=== PATIENT | female | born 1940 | race African-American/Black ===

== ENCOUNTER 2017-09-24 06:33 | Observation (INO) ==
[2017-09-24] MEDS ORDERED: Lidocaine -MPF 1% 2 ML VIAL ID ONE (06:56)
[2017-09-24] MEDS ORDERED: CeFAZolin Syr 2,000MG/20 ML 2,000 MG/20 ML SYRINGE IVPB ONE (06:56)
[2017-09-24] MEDS ORDERED: 0.9 % Sodium Chloride 500 ML IVC SCH ×2 (07:00→12:15)
[2017-09-24] MEDS ORDERED: Lidocaine 1% 20 ML MDV ONE (07:25)
[2017-09-24] MEDS ORDERED: Heparin 1,000 UNITS/500 mL 1,000 ML ONE (07:25)
[2017-09-24] MEDS ORDERED: *HR* Succinylcholine 200 MG/10 ML VIAL IVP ONE (07:35)
[2017-09-24] MEDS ORDERED: Dexamethasone 4 MG/ML VIAL ONE (07:35)
[2017-09-24] MEDS ORDERED: Ondansetron 4 MG/2 ML VIAL ONE (07:35)
[2017-09-24] MEDS ORDERED: *HR* FentaNYL (PF) 100 MCG/2 ML VIAL ONE ×2 (07:35→09:30)
[2017-09-24] MEDS ORDERED: Lidocaine -MPF 2% 2 ML VIAL ONE (07:35)
[2017-09-24] MEDS ORDERED: *HR* Propofol 200 MG/20 ML VIAL IVP ONE (07:35)
[2017-09-24] MEDS ORDERED: *HR* Etomidate 40 MG/20 ML VIAL IVP ONE (07:36)
--- NOTE | 2017-09-24 07:39 | Anesthesia Evaluation PreOp ---
Date of Encounter: 09/24/17 Time of Encounter: 07:37 - Past History Planned Operation: right upper extremity vasc access Cardiac History: [place], Angina (currently with chest pain, new EKG shows no changes. Some associated mild SOB. Patient reports pain has resolved after EKG done.), HTN, Hyperlipidemia, Cardiac Surgery (2000) Pulmonary History: Denies Any Significant HX EXTERMINATOR HELPER History: Denies Any Significant HX Other Medical History: Renal (ESRD), Diabetes Type II Anesthesia History: No Prior Anesthetic Complications, Past Anesthesia (GLADYS, CABG, left TKA, nargis, ear sx) : No Alcohol Use: none Drug use: none Medications and Allergies Amlodipine [Amlodipine Besylate] 5 mg PO DAILY 08/05/15 [History] Aspirin Enteric Coated [Aspirin EC] 81 mg PO DAILY 08/05/15 [History] Carvedilol [Coreg] 25 mg PO BID 08/05/15 [History] Furosemide [Lasix] 20 mg PO BID 08/05/15 [History] Hydralazine HCl 50 mg PO DAILY 08/05/15 [History] Hydrocodone/Acetaminophen [Xodol 10-300 Tablet] 5 each PO Q6H PRN 08/05/15 [ History] Isosorbide DInitrate [Isosorbide Dinitrate] 10 mg PO BID 08/05/15 [History] Paricalcitol [Zemplar] 1 mcg PO DAILY 08/05/15 [History] Warfarin [Coumadin] 2.5 mg PO 5XW 08/05/15 [History] Ferrous Sulfate 325 mg PO BIDWM #60 tablet 04/10/16 [Rx] [place]-3/Dha/Epa/Fish Oil [Fish Oil 1,000 mg Softgel] 1 each PO DAILY 09/06/17 [ History] Omeprazole [PriLOSEC] 20 mg PO DAILY 09/06/17 [History] Ubidecarenone [Coenzyme Q10] 100 mg PO DAILY 09/06/17 [History] Warfarin [Coumadin] 1.25 mg PO 2XW 09/06/17 [History] Donepezil HCl [Aricept] 10 mg PO DAILY 09/07/17 [History] Famotidine [Pepcid] 20 mg PO DAILY #10 tablet 09/07/17 [Rx] 3 Allergy/AdvReac Type Severity Reaction Status Date / Time No Known Allergies Allergy Verified 07/05/16 20:51 - Meds/Allergy Pre-op Review Medications Reviewed: Yes (took coumadin yesterday) Allergies Reviewed: Yes Beta Blockers on Current Med List: No Anesthesia Results - Labs Laboratory Tests 09/07/17 09/07/17 16:07 16:07 Hgb 10.0 L Hct 29.2 L Sodium 138 Potassium 3.7 BUN 55 H Creatinine 4.87 H - Imaging EKG: report reviewed Anesthesia Exam Selected Entries 09/24/17 07:00 Temperature 97.6 F Pulse Rate 66 Respiratory Rate 18 Blood Pressure 131/73 O2 Sat by Pulse Oximetry 98 Weight: 81kg NPO (# of Hours): 8 - HEENT Pupil (Motor): EOMI Mallampati: III Teeth: Normal Oral Opening: Greater than 3 - EXTERMINATOR HELPER LOC: Oriented EXTERMINATOR HELPER Motor: Normal RUE, Normal LUE, Normal RLE, Normal LLE, Normal Face EXTERMINATOR HELPER Sensory: Normal: RUE, LUE, RLE, LLE, Face - Cardiac Rhythm: Regular Murmur: None - Pulmonary Breath Sounds: bilateral Clear Respiratory Effort: Symmetrical Anesthesia Assess/Plan ASA Score: 4 Modified [place] Scale for Level of Consciousness: Cooperative, oriented, and tranquil Anesthetic Plan: General Autologous Blood: Yes Monitoring Plan: Standard Monitors, A-Line Recovery Plan: PACU (will place a-line, agrees to GA, will ask Dr Guerrero to keep overnight for observation of heart)
[2017-09-24] MEDS ORDERED: Heparin 1,000 UNITS/500 mL 0 ML ONE (07:44)
--- NOTE | 2017-09-24 07:50 | History & Physical Report ---
Date of Encounter: 09/24/17 Time of Encounter: 07:30 24 Hour HP Update - Instructions Instructions: If the History and Physical is less than 30 days old and was completed prior to A.M. admission and or procedure and has NOT been updated on calendar day of procedure please complete this update prior to performing procedure. - Update Patient reports changes in Medical Condition: Yes Changes in examination, assessment, or condition: Yes Changes in Medication: Yes Preop tests/diagnostics Reviewed: Yes Surgery Remains Indicated: Yes Consent for Planned Operative Procedure(s) Verified: Yes Review of Patient reveals the following changes:: change in beta lori dosage/Chest pain - Pre-Operative Checklist Preoperative Checklist Indicated: Yes Prophylactic Antibiotic Ordered: Yes Home Medications Include Beta Lori: Yes Beta Lori Taken Today (Day of Surgery): Yes Beta Lori Taken Yesterday (Day Prior to Surgery): Yes Is VTE Prophylaxis Indicated?: Yes
[2017-09-24] MEDS ORDERED: NiCARdipine 2.5 MG/10 ML Syringe IVPB ONE (08:07)
[2017-09-24] MEDS ORDERED: Nitroglycerin 25 MG/250 ML INFUS..BTL IVC ONE (08:07)
[2017-09-24] MEDS ORDERED: Lidocaine -MPF 4% 5 ML AMPUL ONE (09:29)
[2017-09-24] MEDS ORDERED: Neostigmine Methylsulfate 3 MG/3 ML SYRINGE ONE (11:59)
[2017-09-24] MEDS ORDERED: Ondansetron 4 MG/2 ML VIAL IVP ONE (12:05)
[2017-09-24] MEDS ORDERED: *HR* Morphine 2 MG/ML SYRINGE IVP PRN (12:05)
--- NOTE | 2017-09-24 12:16 | Operative Note ---
Date of procedure: 09/24/17 Pre-op diagnosis: ESRD Post-op diagnosis: same Procedure: creation of right forearm AV shunt(4-->7 mm PTFE Brachio-basilic AVS) Complications: none Anesthesia: JENNIEA Surgeon: Calixto Craft Estimated blood loss (cc): 150 Specimen: none Condition: stable Disposition: PACU Procedure in Detail: History Lakshmi Lemus is a 77-year-old -[place] and woman who has deteriorating renal function. The patient was in stage IV to stage V chronic kidney disease. She was asked to have a vascular access creation in anticipation of the need for dialysis in 2018. Procedure After informed consent was obtained the patient was taken to the operating room. General endotracheal anesthesia was established. An arterial line was placed. The right upper extremity was sterilely prepped and draped. A timeout protocol was observed. An ultrasound was then performed of the arm. Though a cephalic vein was identified by observation on the wrist area on ultrasound the vessel was very small and did not progress to a larger size more proximally and so therefore an AV fistula at the wrist was not anatomically feasible. An incision was then made in a transverse orientation at the antecubital area. Dissection was carried down to the antecubital and cephalic vein. The brachial artery was also identified more medially. The cephalic vein had inflammatory tissue surrounding it and was smaller in diameter than anticipated. The distance between the vessels with such that a AV fistula was not feasible and so therefore the patient would need an AV shunt. The arterial anastomosis was created first. This was performed in end to side fashion using a 4-7 mm tapered PTFE graft. After the arterial anastomosis was performed the graft was tunneled and then the cephalic vein was opened at the antecubital area. However upon opening the vein there was significant amount of intra-luminal scarring and weblike material. After exploration of this area it was found that this vein was inadequate for use as an outflow for an AV shunt. Therefore the operation would need to be revised. Attention was then directed more medially. The ultrasound was then reperformed to identify that the basilic vein was opened and appeared to be usable as a outflow venous conduit. Therefore the incision at the antecubital area was extended medially. The vein was identified. The vein was relatively small in diameter but was soft and appeared noninflamed. Therefore the graft was re- tunneled. He was taken out of the original tunnel with the orientation laterally towards the cephalic vein. It was re-tunneled so that the graft would now be oriented medially towards the basilic vein. This required re-tunneling more medially and then a revision of the artery side of the tunnel. After this was complete through a counterincision in the distal forearm and the venous anastomosis was constructed. This was constructed end-to-side to side using the larger diameter of the 4-7 mm PTFE graft with 6-0 Prolene. After appropriate backbleeding and flushing the graft was opened. Pulsatile flow was identified through the graft and into the basilic vein. Hemostasis was achieved. The wounds were irrigated with antibiotic containing solution. The wounds were then closed in layers using absorbable suture. Dry sterile dressings were applied. Doppler signals are identified at the radial and ulnar arteries following creation of the AV shunt. The patient was extubated in the operating room. She was hemodynamically stable. No hemodynamic drips were necessary. She was then taken to the recovery room in stable condition.
--- NOTE | 2017-09-24 13:33 | Anesthesia Evaluation Post Op ---
Date of Encounter: 09/24/17 Time of Encounter: 13:33 - Vital Signs Vital Signs: Last Vital Signs Temp 98.5 F 09/24/17 13:17 Pulse 64 09/24/17 13:17 Resp 17 09/24/17 13:17 BP 138/72 09/24/17 13:17 Pulse Ox 98 09/24/17 13:17 - Lungs Lungs: Clear Ascult./Percussion - Airway Airway: Non-obstructed - Cardiovascular Regular Rate - Mental Status Mental Status: Alert & Oriented, Answers Appropriately - Pain Pain Scale: 2 - Nausea Vomiting Nausea Vomiting: Not Present - Hydration Hydration: Ice chips - Discharge PostOp Status: Transfer Patient to floor
[2017-09-24] MEDS ORDERED: Ondansetron 4 MG/2 ML VIAL IVP PRN (13:47)
[2017-09-24] MEDS ORDERED: Naloxone 0.4 MG/ML INJ IVP PRN (13:47)
[2017-09-24] MEDS ORDERED: *HR* Warfarin 2.5 MG TABLET PO SCH ×2 (13:47→18:00)
--- NOTE | 2017-09-24 16:12 | Event Note ---
Date of Encounter: 09/24/17 Time of Encounter: 16:10 Mrs. Lemus is postop day 0 from creation of a right forearm AV shunt. The patient is resting comfortably on 2 N. Her arterial line is in place and functioning well. Her vital signs have been stable since surgery. She denies chest pain or shortness of breath. She is overall relaxed and in no distress. Her lungs are clear to auscultation. Cardiac exam reveals a regular rate and rhythm. I detect no rub or murmur. Her right upper extremity is without edema. Her right hand is warm. She has a palpable radial pulse. Her surgical dressings are dry and intact. Overall the patient is doing well. I anticipate she will be ready for discharge in a.m.
[2017-09-24] MEDS: Cholecalciferol (D-3) 1,000 UNIT TABLET PO SCH (17:01)
--- NOTE | 2017-09-24 18:34 | Electrocardiograph Report ---
[address] [place] [address] Test Date: 2017-09-24 Pat Name: Lakshmi Lemus Department: 101 Room: Gender: F Mfts: SAFIA : 1940 Requested By: Nathan Stevenson Order Number: [id number] Reading MD: Wilfredo Bergman DO Measurements Intervals [place] Rate: 59 P: 14 WA: 191 QRS: 4 QRSD: 97 T: 38 QT: 411 QTc: 411 Interpretive Statements SINUS BRADYCARDIA Electronically Signed On 09-24-2017 18:33:05 EST by Wilfredo Bergman DO
[2017-09-24] MEDS: Furosemide 40 MG TABLET PO SCH (21:01)
[2017-09-24] MEDS: hydrALAZINE 25 MG TABLET PO SCH (21:01)
[2017-09-24] MEDS: *HR* HYDROcodone/Acet 5/325 mg TABLET PO PRN (21:49)
[2017-09-25] MEDS: hydrALAZINE 25 MG TABLET PO SCH (08:10)
[2017-09-25] MEDS: Cholecalciferol (D-3) 1,000 UNIT TABLET PO SCH (08:10)
[2017-09-25] MEDS: Furosemide 40 MG TABLET PO SCH (08:11)
--- NOTE | 2017-09-25 08:16 | Discharge Summary ---
Date of Encounter: 09/25/17 Time of Encounter: 08:14 - Discharge Diagnosis (1) CAD (coronary artery disease) Priority: Secondary Status: Chronic Comments: Patient has coronary disease under medical treatment Qualifiers: Coronary Disease-Associated Artery/Lesion type: [place] artery [place] vs. transplanted heart: [place] heart Associated angina: with stable angina Qualified Code(s): I25.118 - Atherosclerotic heart disease of [place] coronary artery with other forms of angina pectoris (2) CKD (chronic kidney disease) stage 4, GFR 15-29 ml/min Priority: Primary Status: Acute Comments: Patient has worsening renal function (3) Dementia arising in the senium and presenium Priority: Secondary Status: Chronic - Discharge Medications Home Medications: Amlodipine [Amlodipine Besylate] 10 mg PO DAILY 08/05/15 [History] Aspirin Enteric Coated [Aspirin EC] 81 mg PO DAILY 08/05/15 [History] Carvedilol [Coreg] 12.5 mg PO BID 08/05/15 [History] Furosemide [Lasix] 20 mg PO BID 08/05/15 [History] Hydralazine HCl 50 mg PO BID 08/05/15 [History] Isosorbide DInitrate [Isosorbide Dinitrate] 10 mg PO BID 08/05/15 [History] Paricalcitol [Zemplar] 1 mcg PO DAILY 08/05/15 [History] Warfarin [Coumadin] 2.5 mg PO AD 08/05/15 [History] Omeprazole [PriLOSEC] 40 mg PO DAILY 09/06/17 [History] Ubidecarenone [Coenzyme Q10] 100 mg PO DAILY 09/06/17 [History] Donepezil HCl [Aricept] 10 mg PO HS 09/07/17 [History] Ergocalciferol (VITAMIN D2) [Drisdol (50,000 Unit)] 50,000 unit PO QWEEK [History] HYDROcodone/Acet 5/325 mg [[place] 5-325 mg] 1 tab PO Q8H PRN 09/24/17 [History] [place]-3/Dha/Epa/Fish Oil [Fish Oil 1,000 mg Softgel] 1,000 mg PO DAILY 09/24/17 [History] Allergies/Adverse Reactions: 3 Allergy/AdvReac Type Severity Reaction Status Date / Time No Known Allergies Allergy Verified 04/08/16 20:51 Procedures/tests Complete & Pending: Procedures Performed prior 72 hours Category Date Time Status EKG [ECG 12 lead ECG] [ECG] Stat Y 09/24/17 07:16 Completed Primary care physician: Morris Cabrera DO Consults: None Procedure(s) Performed: Right forearm AV shunt Discharging clinician: Calixto Craft Anticipated date of discharge: 09/25/17 - Patient Status Disposition: Home, Self-Care Condition: Fair Functional capacity at discharge: uses cane/walker Overall status at discharge: patient is progressing back to baseline - Discharge Instructions Follow Up With: Morris Cabrera DO [Primary Care Provider] - 09/29/17 9:30 am Calixto Craft MD [Partnered Physician] - 10/14/17 9:30 am Additional Instructions: Remove right upper extremity surgical dressings in 24 hours Elevate right upper extremity on one pillow No IVs, phlebotomy, or blood pressure measurements in the right upper extremity No lifting greater than 10 pounds with right upper extremity Follow-up with Dr. Craft in the outpatient clinic in 3 weeks. - Diet and Activity Activity: increase activity as tolerated Diet: advance to your usual diet - Hospital Course Hospital course: Ms. Lemus is a 77 year old female With chronic renal failure. The patient required overnight observation because of chest pain and recent changes in her medications. The patient did well. The patient was felt that ready for discharge on the morning of postoperative day # 1. - Time Spent with Patient Total time spent providing and/or coordinating discharge services: Exam Vital Signs, Last 4 Hours Temp Pulse Resp BP Pulse Ox 09/25/17 07:31 99.1 F 63 15 118/68 99 09/25/17 04:41 97.6 F 70 16 141/66 99 General: Present: Conversant, No Apparent Distress Vascular: Present: Normal capillary refill, Pulse, normal, Surgical incisions ( Patient has dressings over surgical incisions) - VTE Documentation of Mechanical Device: Intermittent pneumatic compression device
[2017-09-25] MEDS ORDERED: (Omega-3/Dha/Epa/Fish Oil [Fish Oil 1,000 Mg Softgel] PO SCH (09:00)
[2017-09-25] MEDS ORDERED: (Ubidecarenone [Coenzyme Q10] 100 MG) PO SCH (09:00)
[2017-09-25] MEDS ORDERED: amLODIPine 5 MG TABLET PO SCH (09:00)
[2017-09-25] MEDS ORDERED: Aspirin Enteric Coated 81 MG Tablet PO SCH (09:00)
[2017-09-25] MEDS: *HR* HYDROcodone/Acet 5/325 mg TABLET PO PRN (10:48)
[2017-09-25 11:32] VITALS: BP 126/69
[2017-09-26] MEDS ORDERED: *HR* Warfarin 2.5 MG TABLET PO SCH (18:00)
== END 2017-09-25 15:05 | disposition home or self-care (01) ==
LOC: SAMDAY 06:33 → 2NNU 06:33
PROVIDERS: ADMIT Surgery Vascular Surgery; ATTEND Surgery Vascular Surgery

== ENCOUNTER 2019-07-19 12:46 | Observation (INO) ==
[~2019-07-19 12:46] MED LIST: Aminoglycoside Consult 1 EACH MC ONE
[2019-07-19] MEDS ORDERED: Acetaminophen 325 MG TABLET PO ONE (13:03)
[2019-07-19] MEDS ORDERED: Ondansetron 4 MG/2 ML VIAL IVP ONE (14:16)
[2019-07-19] MEDS ORDERED: Morphine Sulfate 2 MG/ML SYRINGE IVP ONE (14:16)
[2019-07-19 14:17] LABS: Basophils % 0.4 %; Eosinophils # 0.2 K/mcL (0.0-0.6); Eosinophils % 3.1 %; Hematocrit 34.8 % (35.3-44.9); Hemoglobin 11.3 g/dL (11.5-15.4); Immature Granulocytes % 0.4 % (0-4); Lymphocytes # 2.9 K/mcL (0.6-4.6); Lymphocytes % 40.5 %; Mean Corpuscular HGB Conc 32.5 g/dL (31.6-35.5); Mean Corpuscular Hemoglobin 31.7 pg (28.0-33.3); Mean Corpuscular Volume 97.8 fL (83.0-100.0); Mean Platelet Volume 9.2 fL (9.4-12.4); Monocytes # 0.6 K/mcL (0.0-1.3); Monocytes % 8.5 %; Neutrophils # 3.4 K/mcL (1.6-8.9); Platelet Count 320 K/mcL (140-400); Red Blood Count 3.56 M/mcL (3.82-4.97); Red Cell Distribution Width 14.1 % (11.5-14.5); Segmented Neutrophils % 47.1 %; White Blood Count 7.2 K/mcL (4.3-11.1)
[2019-07-19 14:37] LABS: Albumin 3.8 g/dL (3.5-5.7); Albumin/Globulin Ratio 0.7 (1.1-2.2); Bilirubin,Direct 0.2 mg/dL (0.0-0.2); Bilirubin,Indirect 0.4 mg/dL (0.0-1.2); Bilirubin,Total 0.6 mg/dL (0.3-1.0); Calcium 10.2 mg/dL (8.6-10.3); Globulin 5.7 g/dL (2.4-3.5); Potassium 3.9 mEq/L (3.5-5.1); Total Protein 9.5 g/dL (6.4-8.9)
[2019-07-19 15:21] LABS: INR 2.4
[2019-07-19] MEDS ORDERED: Clindamycin 600 MG/50 ML 600 MG/50 ML IV.SOLN IVPB ONE (16:00)
[2019-07-19] MEDS ORDERED: Acetaminophen 325 MG TABLET PO PRN (18:22)
[2019-07-19] MEDS ORDERED: Naloxone 0.4 MG/ML INJ IVP PRN (18:22)
[2019-07-19] MEDS ORDERED: Ondansetron 4 MG/2 ML VIAL IVP PRN (18:22)
[2019-07-19] MEDS ORDERED: D5% in Water 1,000 ML IVC PRN (18:25)
[2019-07-19] MEDS ORDERED: Dextrose Gel 15 GM/37.5 ML TUBE PO PRN ×2 (18:25)
[2019-07-19] MEDS ORDERED: *HR* Dextrose 50 % in Water (Syg) 50 ML SYRINGE IVP PRN (18:25)
[2019-07-19] MEDS ORDERED: *HR* Warfarin 1 MG TABLET PO ONE (19:10)
[2019-07-19] MEDS: Piperacillin/Tazobactam 3.375 GM in 0.9 % Sodium Chloride Mini Bag 100 ML IVPB SCH (20:11)
[2019-07-19] MEDS: Insulin DETEMIR 100 UNIT/ML X5UNITS SQ SCH (20:55)
[2019-07-19] MEDS: Gabapentin 100 MG CAPSULE PO SCH (21:01)
[2019-07-19] MEDS: hydrALAZINE 25 MG TABLET PO SCH (21:01)
[2019-07-19] MEDS: *HR* HYDROcodone/Acet 5/325 mg TABLET PO PRN (23:12)
[2019-07-20] MEDS: Piperacillin/Tazobactam 3.375 GM in 0.9 % Sodium Chloride Mini Bag 100 ML IVPB SCH (04:00)
[2019-07-20] MEDS: *HR* HYDROcodone/Acet 5/325 mg TABLET PO PRN ×2 (05:45→12:07)
[2019-07-20 06:18] LABS: Basophils % 0.3 %; Eosinophils # 0.2 K/mcL (0.0-0.6); Eosinophils % 2.8 %; Hematocrit 31.2 % (35.3-44.9); Immature Granulocytes % 0.3 % (0-4); Lymphocytes # 2.6 K/mcL (0.6-4.6); Lymphocytes % 42.6 %; Mean Corpuscular HGB Conc 32.1 g/dL (31.6-35.5); Mean Corpuscular Hemoglobin 31.4 pg (28.0-33.3); Mean Corpuscular Volume 98.1 fL (83.0-100.0); Mean Platelet Volume 9.4 fL (9.4-12.4); Monocytes # 0.6 K/mcL (0.0-1.3); Monocytes % 9.3 %; Neutrophils # 2.7 K/mcL (1.6-8.9); Platelet Count 309 K/mcL (140-400); Red Blood Count 3.18 M/mcL (3.82-4.97); Red Cell Distribution Width 14.1 % (11.5-14.5); Segmented Neutrophils % 44.7 %
[2019-07-20 06:22] LABS: INR 2.6; Prothrombin Time 29.6 Seconds (9.4-12.1)
[2019-07-20 06:33] LABS: Calcium 9.3 mg/dL (8.6-10.3); Magnesium 2.1 mg/dL (1.6-2.6); Phosphorous 4.9 mg/dL (2.7-4.5); Potassium 4.1 mEq/L (3.5-5.1)
[2019-07-20] MEDS ORDERED: Vancomycin 1 EACH in 0.9 % Sodium Chloride 250 ML IVPB PRN ×2 (08:00→09:00)
[2019-07-20] MEDS ORDERED: 0.9 % Sodium Chloride 250 ML IVC PRN (08:12)
[2019-07-20] MEDS ORDERED: 0.9 % Sodium Chloride 1,000 ML PRIME SCH (08:15)
[2019-07-20] MEDS ORDERED: amLODIPine 5 MG TABLET PO SCH (09:00)
[2019-07-20 09:28] LABS: Estimated Average Glucose 174 mg/dl
[2019-07-20] MEDS: Insulin LISPRO 300 UNITS/3 ML VIAL SQ SCH ×3 (09:33→17:08)
[2019-07-20] MEDS: Aspirin Enteric Coated 81 MG Tablet PO SCH (09:36)
[2019-07-20] MEDS: Gabapentin 100 MG CAPSULE PO SCH ×3 (09:36→20:09)
[2019-07-20] MEDS: hydrALAZINE 25 MG TABLET PO SCH ×2 (09:45→20:10)
[2019-07-20 13:34] LABS: Hepatitis B Surface Antigen Nonreactive (Nonreactive)
[2019-07-20] MEDS ORDERED: Warfarin perPT PO PRN (18:00)
[2019-07-20] MEDS ORDERED: *HR* Warfarin 2.5 MG TABLET PO ONE (18:00)
[2019-07-20] MEDS: Ampicillin/Sulbactam 3,000 MG in 0.9 % Sodium Chloride Mini Bag 100 ML IVPB SCH (18:05)
[2019-07-20] MEDS: Insulin DETEMIR 100 UNIT/ML X5UNITS SQ SCH (20:09)
[2019-07-20] MEDS: Furosemide 40 MG TABLET PO SCH (20:09)
[2019-07-21] MEDS: *HR* HYDROcodone/Acet 5/325 mg TABLET PO PRN ×2 (03:25→09:34)
[2019-07-21 04:20] LABS: Basophils % 0.3 %; Eosinophils # 0.2 K/mcL (0.0-0.6); Eosinophils % 3.1 %; Hematocrit 32.6 % (35.3-44.9); Hemoglobin 10.4 g/dL (11.5-15.4); Immature Granulocytes % 0.4 % (0-4); Lymphocytes % 41.9 %; Mean Corpuscular HGB Conc 31.9 g/dL (31.6-35.5); Mean Corpuscular Hemoglobin 31.8 pg (28.0-33.3); Mean Corpuscular Volume 99.7 fL (83.0-100.0); Monocytes # 0.7 K/mcL (0.0-1.3); Monocytes % 9.2 %; Neutrophils # 3.2 K/mcL (1.6-8.9); Platelet Count 238 K/mcL (140-400); Red Blood Count 3.27 M/mcL (3.82-4.97); Segmented Neutrophils % 45.1 %; White Blood Count 7.1 K/mcL (4.3-11.1)
[2019-07-21 04:34] LABS: Calcium 9.2 mg/dL (8.6-10.3); Potassium 3.9 mEq/L (3.5-5.1)
[2019-07-21 04:35] LABS: Prothrombin Time 34.5 Seconds (9.4-12.1)
[2019-07-21] MEDS: Ampicillin/Sulbactam 3,000 MG in 0.9 % Sodium Chloride Mini Bag 100 ML IVPB SCH (05:10)
[2019-07-21] MEDS: Insulin LISPRO 300 UNITS/3 ML VIAL SQ SCH (08:26)
[2019-07-21] MEDS: hydrALAZINE 25 MG TABLET PO SCH (08:27)
[2019-07-21] MEDS: Aspirin Enteric Coated 81 MG Tablet PO SCH (08:28)
[2019-07-21] MEDS: Gabapentin 100 MG CAPSULE PO SCH (08:28)
[2019-07-21] MEDS: Furosemide 40 MG TABLET PO SCH (08:28)
[2019-07-21] MEDS ORDERED: NON-FORMULARY MEDICATION 1 EACH EACH (Ubidecarenone/Vit E Acetate [Co Q-10 100 Mg Softgel] PO SCH (09:00)
[2019-07-21] MEDS ORDERED: amLODIPine 5 MG TABLET PO SCH (09:00)
[2019-07-21] MEDS ORDERED: Cholecalciferol (D-3) 1,000 UNIT (25MCG) TABLET PO SCH (09:00)
[2019-07-21 11:47] VITALS: BP 96/60
[2019-07-21] MEDS ORDERED: Ampicillin/Sulbactam 3,000 MG in 0.9 % Sodium Chloride Mini Bag 100 ML IVPB SCH (18:00)
[2019-07-21] MEDS ORDERED: *HR* Warfarin 2.5 MG TABLET PO ONE (18:00)
== END 2019-07-21 12:18 | disposition home health service (06) ==
LOC: SUATTDRO → EMEROOARM 12:46 → 2ANU 12:46 → SUATTDRO 17:56 → 2ANU 18:10
PROVIDERS: ADMIT Pharmacist; ATTEND Internal Medicine

== ENCOUNTER 2019-07-26 13:02 | Inpatient (IN) ==
[2019-07-26] MEDS ORDERED: Ondansetron 4 MG/2 ML VIAL IVP ONE (14:39)
[2019-07-26] MEDS ORDERED: Vancomycin (wt based) 1,000 MG VIAL IV STA (14:58)
[2019-07-26] MEDS ORDERED: Piperacillin/Tazobactam 3.375 GM in 0.9 % Sodium Chloride Mini Bag 100 ML IVPB ONE (14:58)
[2019-07-26 15:33] LABS: Basophils % 0.2 %; Eosinophils # 0.1 K/mcL (0.0-0.6); Eosinophils % 0.8 %; Hematocrit 32.3 % (35.3-44.9); Hemoglobin 10.4 g/dL (11.5-15.4); Immature Granulocytes % 0.6 % (0-4); Lymphocytes # 1.6 K/mcL (0.6-4.6); Lymphocytes % 15.6 %; Mean Corpuscular HGB Conc 32.2 g/dL (31.6-35.5); Mean Corpuscular Hemoglobin 31.6 pg (28.0-33.3); Mean Corpuscular Volume 98.2 fL (83.0-100.0); Mean Platelet Volume 9.5 fL (9.4-12.4); Monocytes # 1.1 K/mcL (0.0-1.3); Neutrophils # 7.4 K/mcL (1.6-8.9); Platelet Count 281 K/mcL (140-400); Red Blood Count 3.29 M/mcL (3.82-4.97); Red Cell Distribution Width 14.4 % (11.5-14.5); Segmented Neutrophils % 71.8 %
[2019-07-26 15:34] LABS: White Blood Count 10.3 K/mcL (4.3-11.1)
[2019-07-26 15:44] LABS: INR 2.2
[2019-07-26 15:47] LABS: Activated Partial Thrombo Time 33.1 Seconds (26.0-36.0)
[2019-07-26 15:55] LABS: Alanine Aminotransferase 22 Units/L (7-52); Albumin 3.6 g/dL (3.5-5.7); Albumin/Globulin Ratio 0.7 (1.1-2.2); Alkaline Phosphatase 73 Units/L (34-104); Aspartate Amino Transferase 28 Units/L (13-39); BUN/Creatinine Ratio 5 (6-26); Bilirubin,Direct 0.1 mg/dL (0.0-0.2); Bilirubin,Indirect 0.7 mg/dL (0.0-1.0); Bilirubin,Total 0.8 mg/dL (0.3-1.0); Blood Urea Nitrogen 37 mg/dL (8-23); Carbon Dioxide 30 mEq/L (23-29); Chloride 93 mEq/L (98-107); Ethanol < 10 mg/dL (Less than 10); Globulin 5.3 g/dL (2.4-3.5); Glucose 80 mg/dL (70-105); Osmolality,Calculated 290 (280-300); Potassium 4.2 mEq/L (3.5-5.1); Sodium 136 mEq/L (136-145); Total Protein 8.9 g/dL (6.4-8.9); Troponin I 0.03 ng/mL (< 0.04); eGFR For African Americans 7 (> 60); eGFR For Non-African Americans 6 (> 60)
[2019-07-26 16:02] LABS: Bilirubin,Urine Negative (Negative); Blood,Urine Negative (Negative); Clarity,Urine Clear (Clear); Color,Urine Yellow (Yellow); Glucose,Urine (UA) Normal (Normal); Ketones,Urine Negative (Negative); Leukocyte Esterase,Urine Negative (Negative); Nitrite,Urine Negative (Negative); PH,Urine 7.5 pH Units (5.0-8.0); Protein,Urine 100 mg/dL (Neg-Trace); Specific Gravity,Urine 1.014 (1.010-1.025); Urobilinogen,Urine Normal (Normal)
[2019-07-26 16:04] LABS: Bacteria,Urine None Seen per hpf (None-Few); Squamous Epithelial Cell,Urine Many per lpf (None-Few); WBC,Urine 0-3 per hpf (0-3)
[2019-07-26 16:07] LABS: Amphetamine Screen,Urine Negative ng/mL (Cutoff=1000); Barbiturate Screen,Urine Negative ng/mL (Cutoff=200); Benzodiazepines Screen,Urine Negative ng/mL (Cutoff=200); Cannabinoid Screen,Urine Negative ng/mL (Cutoff = 50); Cocaine Screen,Urine Negative ng/mL (Cutoff= 300); Opiate Screen,Urine Positive ng/mL (Cutoff=300); Phencyclidine Screen,Urine Negative ng/mL (Cutoff=25)
[2019-07-26] MEDS ORDERED: Naloxone 0.4 MG/ML INJ IVP STA (17:21)
[2019-07-26] MEDS ORDERED: Naloxone 0.4 MG/ML INJ IVP PRN (17:46)
[2019-07-26] MEDS ORDERED: Warfarin perPT PO PRN (18:06)
[2019-07-26] MEDS ORDERED: D5% in Water 1,000 ML IVC PRN (18:10)
[2019-07-26] MEDS ORDERED: Dextrose Gel 15 GM/37.5 ML TUBE PO PRN ×2 (18:10)
[2019-07-26] MEDS ORDERED: *HR* Dextrose 50 % in Water (Syg) 50 ML SYRINGE IVP PRN (18:10)
[2019-07-26] MEDS: Acetaminophen 325 MG TABLET PO PRN (18:52)
[2019-07-26] MEDS ORDERED: Vancomycin 1 EACH in 0.9 % Sodium Chloride 250 ML IVPB PRN (19:00)
[2019-07-26] MEDS ORDERED: *HR* Warfarin 2.5 MG TABLET PO ONE (19:12)
[2019-07-27] MEDS ORDERED: Piperacillin/Tazobactam 3.375 GM in 0.9 % Sodium Chloride Mini Bag 100 ML IVPB SCH (04:00)
[2019-07-27 07:08] LABS: Basophils % 0.4 %; Eosinophils # 0.2 K/mcL (0.0-0.6); Hematocrit 32.5 % (35.3-44.9); Hemoglobin 10.7 g/dL (11.5-15.4); Immature Granulocytes % 0.5 % (0-4); Lymphocytes # 2.5 K/mcL (0.6-4.6); Lymphocytes % 32.1 %; Mean Corpuscular HGB Conc 32.9 g/dL (31.6-35.5); Mean Corpuscular Volume 97.3 fL (83.0-100.0); Mean Platelet Volume 9.8 fL (9.4-12.4); Monocytes # 1.1 K/mcL (0.0-1.3); Monocytes % 14.2 %; Platelet Count 251 K/mcL (140-400); Red Blood Count 3.34 M/mcL (3.82-4.97); Red Cell Distribution Width 14.4 % (11.5-14.5); Segmented Neutrophils % 50.8 %; White Blood Count 7.9 K/mcL (4.3-11.1)
[2019-07-27] MEDS ORDERED: 0.9 % Sodium Chloride 250 ML IVC PRN (07:52)
[2019-07-27 07:58] LABS: INR 2.2; Prothrombin Time 25.3 Seconds (9.4-12.1)
[2019-07-27] MEDS: Furosemide 40 MG TABLET PO SCH ×2 (07:59→18:28)
[2019-07-27] MEDS ORDERED: 0.9 % Sodium Chloride 1,000 ML PRIME SCH (08:00)
[2019-07-27] MEDS: Acetaminophen 325 MG TABLET PO PRN ×2 (08:07→15:36)
[2019-07-27 09:18] LABS: Hepatitis B Surface Antibody 5.58 mIU/mL
[2019-07-27 09:29] LABS: Hepatitis B Surface Antigen Nonreactive (Nonreactive)
[2019-07-27] MEDS: Insulin LISPRO 300 UNITS/3 ML VIAL SQ SCH ×3 (11:20→20:09)
[2019-07-27 12:22] LABS: Calcium 9.5 mg/dL (8.6-10.3); Potassium 4.4 mEq/L (3.5-5.1)
[2019-07-27] MEDS ORDERED: Aminoglycoside Consult 1 EACH MC ONE (13:38)
[2019-07-27] MEDS ORDERED: *HR* Dextrose 50 % in Water (Syg) 50 ML SYRINGE IVP PRN (15:48)
[2019-07-27] MEDS ORDERED: Dextrose Gel 15 GM/37.5 ML TUBE PO PRN ×2 (15:48)
[2019-07-27] MEDS ORDERED: D5% in Water 1,000 ML IVC PRN (15:48)
[2019-07-27] MEDS ORDERED: *HR* Warfarin 2.5 MG TABLET PO ONE (18:00)
[2019-07-27] MEDS: Ampicillin/Sulbactam 1,500 MG in 0.9 % Sodium Chloride Mini Bag 100 ML IVPB SCH (18:28)
[2019-07-27] MEDS: Doxycycline 100 MG in 0.9 % Sodium Chloride Mini Bag 100 ML IVPB SCH (18:29)
[2019-07-28] MEDS: Acetaminophen 325 MG TABLET PO PRN ×2 (05:24→11:42)
[2019-07-28] MEDS: Ampicillin/Sulbactam 1,500 MG in 0.9 % Sodium Chloride Mini Bag 100 ML IVPB SCH ×2 (05:24→16:47)
[2019-07-28] MEDS: Doxycycline 100 MG in 0.9 % Sodium Chloride Mini Bag 100 ML IVPB SCH ×2 (05:40→16:47)
[2019-07-28 07:59] LABS: Basophils % 0.2 %; Eosinophils # 0.2 K/mcL (0.0-0.6); Eosinophils % 2.3 %; Hematocrit 30.1 % (35.3-44.9); Hemoglobin 9.6 g/dL (11.5-15.4); Immature Granulocytes % 0.3 % (0-4); Lymphocytes # 2.2 K/mcL (0.6-4.6); Lymphocytes % 24.7 %; Mean Corpuscular HGB Conc 31.9 g/dL (31.6-35.5); Mean Corpuscular Hemoglobin 31.6 pg (28.0-33.3); Mean Platelet Volume 9.6 fL (9.4-12.4); Monocytes # 1.3 K/mcL (0.0-1.3); Monocytes % 14.7 %; Neutrophils # 5.2 K/mcL (1.6-8.9); Platelet Count 271 K/mcL (140-400); Red Blood Count 3.04 M/mcL (3.82-4.97); Red Cell Distribution Width 14.1 % (11.5-14.5); Segmented Neutrophils % 57.8 %; White Blood Count 9.1 K/mcL (4.3-11.1)
[2019-07-28 08:09] LABS: INR 2.5; Prothrombin Time 27.9 Seconds (9.4-12.1)
[2019-07-28 08:16] LABS: Potassium 3.9 mEq/L (3.5-5.1)
[2019-07-28] MEDS: Insulin LISPRO 300 UNITS/3 ML VIAL SQ SCH ×4 (08:46→19:40)
[2019-07-28] MEDS: Furosemide 40 MG TABLET PO SCH ×2 (08:51→16:47)
[2019-07-28] MEDS ORDERED: *HR* OxyCODONE/APAP 5/325 TABLET PO PRN (13:02)
[2019-07-28] MEDS ORDERED: *HR* Warfarin 2.5 MG TABLET PO ONE (18:00)
[2019-07-29 05:37] LABS: Basophils % 0.4 %; Eosinophils # 0.2 K/mcL (0.0-0.6); Eosinophils % 2.5 %; Hematocrit 27.9 % (35.3-44.9); Hemoglobin 9.4 g/dL (11.5-15.4); Immature Granulocytes % 0.5 % (0-4); Lymphocytes # 2.4 K/mcL (0.6-4.6); Lymphocytes % 31.3 %; Mean Corpuscular HGB Conc 33.7 g/dL (31.6-35.5); Mean Corpuscular Volume 94.9 fL (83.0-100.0); Mean Platelet Volume 9.6 fL (9.4-12.4); Monocytes # 1.1 K/mcL (0.0-1.3); Monocytes % 14.5 %; Neutrophils # 3.9 K/mcL (1.6-8.9); Platelet Count 293 K/mcL (140-400); Red Blood Count 2.94 M/mcL (3.82-4.97); Red Cell Distribution Width 14.2 % (11.5-14.5); Segmented Neutrophils % 50.8 %; White Blood Count 7.7 K/mcL (4.3-11.1)
[2019-07-29 05:51] LABS: INR 2.4
[2019-07-29 05:58] LABS: Calcium 9.3 mg/dL (8.6-10.3); Potassium 4.3 mEq/L (3.5-5.1)
[2019-07-29] MEDS: Ampicillin/Sulbactam 1,500 MG in 0.9 % Sodium Chloride Mini Bag 100 ML IVPB SCH ×2 (06:06→16:25)
[2019-07-29] MEDS: Doxycycline 100 MG in 0.9 % Sodium Chloride Mini Bag 100 ML IVPB SCH (06:40)
[2019-07-29] MEDS ORDERED: 0.9 % Sodium Chloride 250 ML IVC PRN (06:47)
[2019-07-29] MEDS: Insulin LISPRO 300 UNITS/3 ML VIAL SQ SCH ×4 (08:10→21:28)
[2019-07-29] MEDS: Furosemide 40 MG TABLET PO SCH ×2 (08:11→16:24)
[2019-07-29] MEDS: Doxycycline 100 MG CAPSULE PO SCH (16:25)
[2019-07-29] MEDS ORDERED: *HR* Warfarin 2.5 MG TABLET PO ONE (18:00)
[2019-07-30] MEDS: Acetaminophen 325 MG TABLET PO PRN (03:24)
[2019-07-30] MEDS: Ampicillin/Sulbactam 1,500 MG in 0.9 % Sodium Chloride Mini Bag 100 ML IVPB SCH (05:11)
[2019-07-30] MEDS: Doxycycline 100 MG CAPSULE PO SCH (05:11)
[2019-07-30] MEDS ORDERED: *HR* Warfarin 2.5 MG TABLET PO ONE (18:00)
[2019-07-30 18:54] LABS: Hematocrit 30.1 % (35.3-44.9); Hemoglobin 10.3 g/dL (11.5-15.4)
[2019-07-30 19:00] LABS: INR 2.4; Prothrombin Time 27.7 Seconds (9.4-12.1)
[2019-07-30] MEDS: Insulin LISPRO 300 UNITS/3 ML VIAL SQ SCH (21:42)
[2019-07-31] MEDS: Insulin LISPRO 300 UNITS/3 ML VIAL SQ SCH ×3 (00:19→07:59)
[2019-07-31] MEDS ORDERED: *HR* Labetalol 20 MG/4 ML SYRINGE IVP ONE (00:34)
[2019-07-31] MEDS: Furosemide 40 MG TABLET PO SCH ×3 (03:39→08:31)
[2019-07-31 04:06] LABS: INR 2.1; Prothrombin Time 24.4 Seconds (9.4-12.1)
[2019-07-31 04:19] LABS: Calcium 9.6 mg/dL (8.6-10.3); Potassium 4.4 mEq/L (3.5-5.1)
[2019-07-31] MEDS: Doxycycline 100 MG CAPSULE PO SCH ×2 (04:35→05:14)
[2019-07-31] MEDS: Ampicillin/Sulbactam 1,500 MG in 0.9 % Sodium Chloride Mini Bag 100 ML IVPB SCH ×2 (04:35→05:14)
[2019-07-31] MEDS: Acetaminophen 325 MG TABLET PO PRN (05:22)
[2019-07-31 13:03] VITALS: BP 149/82
== END 2019-07-31 13:39 | DRG 70 ==
LOC: EMEROOARM 13:02 → 2ANU 13:02 → SUATTDRO 17:37 → 2ANU 18:33
PROVIDERS: ADMIT Internal Medicine; ATTEND Family Medicine

== ENCOUNTER 2019-08-19 15:40 | Inpatient (IN) ==
[2019-08-19] MEDS ORDERED: Isovue-370 500 ML BOTTLE IVP ONE (16:16)
[2019-08-19 17:14] LABS: Basophils % 0.3 %; Eosinophils # 0.2 K/mcL (0.0-0.6); Eosinophils % 2.4 %; Hematocrit 28.3 % (35.3-44.9); Hemoglobin 8.9 g/dL (11.5-15.4); Immature Granulocytes % 0.8 % (0-4); Lymphocytes % 29.6 %; Mean Corpuscular HGB Conc 31.4 g/dL (31.6-35.5); Mean Corpuscular Hemoglobin 30.7 pg (28.0-33.3); Mean Corpuscular Volume 97.6 fL (83.0-100.0); Mean Platelet Volume 10.5 fL (9.4-12.4); Monocytes # 0.8 K/mcL (0.0-1.3); Monocytes % 11.5 %; Neutrophils # 3.7 K/mcL (1.6-8.9); Platelet Count 210 K/mcL (140-400); Red Cell Distribution Width 14.9 % (11.5-14.5); Segmented Neutrophils % 55.4 %; White Blood Count 6.6 K/mcL (4.3-11.1)
[2019-08-19 17:26] LABS: Calcium 9.2 mg/dL (8.6-10.3); Magnesium 1.9 mg/dL (1.6-2.6); Potassium 3.7 mEq/L (3.5-5.1)
[2019-08-19] MEDS ORDERED: Piperacillin/Tazobactam 3.375 GM in 0.9 % Sodium Chloride Mini Bag 100 ML IVPB ONE (18:40)
[2019-08-19 20:44] LABS: INR 2.3; Prothrombin Time 26.5 Seconds (9.4-12.1)
[2019-08-19] MEDS ORDERED: Naloxone 0.4 MG/ML INJ IVP PRN (21:53)
[2019-08-19] MEDS ORDERED: Dextrose Gel 15 GM/37.5 ML TUBE PO PRN ×2 (22:58)
[2019-08-19] MEDS ORDERED: *HR* Dextrose 50 % in Water (Syg) 50 ML SYRINGE IVP PRN (22:58)
[2019-08-19] MEDS ORDERED: D5% in Water 1,000 ML IVC PRN (22:58)
[2019-08-19] MEDS ORDERED: tiZANidine 4 MG TABLET PO ONE (23:22)
[2019-08-19] MEDS ORDERED: *HR* OxyCODONE Immed Rel 5 MG TABLET PO ONE (23:23)
[2019-08-19] MEDS: hydrALAZINE 25 MG TABLET PO SCH (23:45)
[2019-08-20] MEDS ORDERED: tiZANidine 4 MG TABLET PO ONE ×2 (00:15→21:33)
[2019-08-20 04:03] LABS: Hematocrit 25.1 % (35.3-44.9); Hemoglobin 8.3 g/dL (11.5-15.4); Mean Corpuscular HGB Conc 33.1 g/dL (31.6-35.5); Mean Corpuscular Hemoglobin 31.8 pg (28.0-33.3); Mean Corpuscular Volume 96.2 fL (83.0-100.0); Mean Platelet Volume 9.5 fL (9.4-12.4); Platelet Count 246 K/mcL (140-400); Red Blood Count 2.61 M/mcL (3.82-4.97); Red Cell Distribution Width 15.2 % (11.5-14.5); White Blood Count 6.6 K/mcL (4.3-11.1)
[2019-08-20 04:08] LABS: INR 2.3; Prothrombin Time 25.7 Seconds (9.4-12.1)
[2019-08-20 04:11] LABS: Activated Partial Thrombo Time 34.5 Seconds (26.0-36.0)
[2019-08-20 04:23] LABS: % Iron Saturation 31 % (15-50); Iron 47 mcg/dL (50-170); Transferrin 109 mg/dL (203-362)
[2019-08-20 04:24] LABS: Calcium 8.8 mg/dL (8.6-10.3); Chol/HDL Ratio 3.2 (0-4.9); Phosphorous 4.6 mg/dL (2.7-4.5); Potassium 3.7 mEq/L (3.5-5.1)
[2019-08-20] MEDS: hydrALAZINE 25 MG TABLET PO SCH ×4 (04:48→22:34)
[2019-08-20] MEDS: Acetaminophen 325 MG TABLET PO PRN (04:53)
[2019-08-20 08:30] LABS: Estimated Average Glucose 174 mg/dl
[2019-08-20] MEDS: Calcium Acetate 667 MG CAPSULE PO SCH ×2 (08:43→17:04)
[2019-08-20] MEDS: Insulin LISPRO 300 UNITS/3 ML VIAL SQ SCH ×4 (08:43→20:05)
[2019-08-20] MEDS: Gabapentin 100 MG CAPSULE PO SCH (08:44)
[2019-08-20] MEDS: amLODIPine 5 MG TABLET PO SCH (08:44)
[2019-08-20] MEDS: traMADol 50 MG TABLET PO PRN ×2 (08:53→17:08)
[2019-08-20] MEDS ORDERED: 0.9 % Sodium Chloride 1,000 ML PRIME SCH (10:00)
[2019-08-20] MEDS ORDERED: 0.9 % Sodium Chloride 250 ML IVC PRN (10:00)
[2019-08-20] MEDS ORDERED: Warfarin perPT PO PRN (18:00)
[2019-08-20] MEDS ORDERED: *HR* Warfarin 2.5 MG TABLET PO ONE (18:00)
[2019-08-20] MEDS: Furosemide 40 MG TABLET PO SCH (18:51)
[2019-08-20] MEDS: *HR* Repaglinide 1 MG TABLET PO SCH (20:05)
[2019-08-21] MEDS: hydrALAZINE 25 MG TABLET PO SCH ×4 (05:28→21:01)
[2019-08-21] MEDS: Acetaminophen 325 MG TABLET PO PRN ×2 (05:28→16:02)
[2019-08-21 07:58] LABS: Hematocrit 27.5 % (35.3-44.9); Hemoglobin 8.9 g/dL (11.5-15.4); Mean Corpuscular HGB Conc 32.4 g/dL (31.6-35.5); Mean Corpuscular Hemoglobin 31.3 pg (28.0-33.3); Mean Corpuscular Volume 96.8 fL (83.0-100.0); Mean Platelet Volume 9.9 fL (9.4-12.4); Platelet Count 305 K/mcL (140-400); Red Blood Count 2.84 M/mcL (3.82-4.97); Red Cell Distribution Width 15.4 % (11.5-14.5); White Blood Count 7.7 K/mcL (4.3-11.1)
[2019-08-21 08:05] LABS: INR 1.8; Prothrombin Time 20.8 Seconds (9.4-12.1)
[2019-08-21] MEDS: Insulin LISPRO 300 UNITS/3 ML VIAL SQ SCH ×4 (08:25→20:54)
[2019-08-21 08:26] LABS: Calcium 9.6 mg/dL (8.6-10.3); Potassium 4.1 mEq/L (3.5-5.1)
[2019-08-21] MEDS: amLODIPine 5 MG TABLET PO SCH (08:26)
[2019-08-21] MEDS: *HR* Repaglinide 1 MG TABLET PO SCH ×2 (08:27→16:01)
[2019-08-21] MEDS: Calcium Acetate 667 MG CAPSULE PO SCH ×2 (08:27→16:03)
[2019-08-21] MEDS: *HR* Pioglitazone 30 MG TABLET PO SCH (08:27)
[2019-08-21] MEDS: Gabapentin 100 MG CAPSULE PO SCH (08:27)
[2019-08-21] MEDS: Furosemide 40 MG TABLET PO SCH ×2 (08:27→16:03)
[2019-08-21] MEDS ORDERED: (Omega-3/Dha/Epa/Fish Oil [Fish Oil 1,000 Mg Softgel]) PO SCH (09:00)
[2019-08-21] MEDS ORDERED: (Ubidecarenone/Vit E Acetate [Co Q-10 100 Mg Softgel] PO SCH (09:00)
[2019-08-21] MEDS: traMADol 50 MG TABLET PO PRN (12:18)
[2019-08-21] MEDS ORDERED: *HR* Warfarin 4 MG TABLET PO ONE (18:00)
[2019-08-22] MEDS: traMADol 50 MG TABLET PO PRN ×2 (04:05→12:11)
[2019-08-22] MEDS: hydrALAZINE 25 MG TABLET PO SCH ×5 (04:06→20:54)
[2019-08-22 06:15] LABS: Hematocrit 27.7 % (35.3-44.9); Hemoglobin 9.2 g/dL (11.5-15.4); Mean Corpuscular HGB Conc 33.2 g/dL (31.6-35.5); Mean Corpuscular Hemoglobin 32.1 pg (28.0-33.3); Mean Corpuscular Volume 96.5 fL (83.0-100.0); Mean Platelet Volume 9.7 fL (9.4-12.4); Platelet Count 287 K/mcL (140-400); Red Blood Count 2.87 M/mcL (3.82-4.97); Red Cell Distribution Width 15.5 % (11.5-14.5)
[2019-08-22 06:20] LABS: INR 1.7; Prothrombin Time 19.1 Seconds (9.4-12.1)
[2019-08-22] MEDS: *HR* Repaglinide 1 MG TABLET PO SCH ×2 (06:30→18:09)
[2019-08-22 06:41] LABS: Calcium 10.1 mg/dL (8.6-10.3); Potassium 4.5 mEq/L (3.5-5.1)
[2019-08-22] MEDS ORDERED: *HR* Heparin 10,000 UNIT/10 ML VIAL IV PRN (08:18)
[2019-08-22] MEDS ORDERED: Albumin 25% 25gram/100mL 25 GM/100 ML IV.SOLN IVPB PRN (08:18)
[2019-08-22] MEDS ORDERED: 0.9 % Sodium Chloride 250 ML IVC PRN (08:18)
[2019-08-22] MEDS ORDERED: 0.9 % Sodium Chloride 1,000 ML PRIME SCH (08:30)
[2019-08-22] MEDS: Calcium Acetate 667 MG CAPSULE PO SCH ×2 (08:45→18:09)
[2019-08-22] MEDS: *HR* Pioglitazone 30 MG TABLET PO SCH (08:45)
[2019-08-22] MEDS: amLODIPine 5 MG TABLET PO SCH (08:45)
[2019-08-22] MEDS: Gabapentin 100 MG CAPSULE PO SCH (08:45)
[2019-08-22] MEDS: Insulin LISPRO 300 UNITS/3 ML VIAL SQ SCH ×4 (08:46→20:54)
[2019-08-22] MEDS: Furosemide 40 MG TABLET PO SCH ×2 (14:23→18:09)
[2019-08-22] MEDS: Leptospermum Honey Gel 44 ML TUBE TP SCH (15:21)
[2019-08-22] MEDS ORDERED: *HR* Warfarin 2.5 MG TABLET PO ONE (18:00)
[2019-08-23] MEDS: Leptospermum Honey Gel 44 ML TUBE TP SCH ×2 (01:58→09:35)
[2019-08-23 05:27] LABS: Hematocrit 29.3 % (35.3-44.9); Hemoglobin 9.9 g/dL (11.5-15.4); Mean Corpuscular HGB Conc 33.8 g/dL (31.6-35.5); Mean Corpuscular Hemoglobin 31.2 pg (28.0-33.3); Mean Corpuscular Volume 92.4 fL (83.0-100.0); Mean Platelet Volume 9.3 fL (9.4-12.4); Platelet Count 306 K/mcL (140-400); Red Blood Count 3.17 M/mcL (3.82-4.97); Red Cell Distribution Width 15.6 % (11.5-14.5); White Blood Count 10.7 K/mcL (4.3-11.1)
[2019-08-23 05:31] LABS: INR 1.9; Prothrombin Time 21.5 Seconds (9.4-12.1)
[2019-08-23 05:39] LABS: Calcium 10.6 mg/dL (8.6-10.3); Potassium 4.4 mEq/L (3.5-5.1)
[2019-08-23 05:57] LABS: Hepatitis B Surface Antibody 7.37 mIU/mL
[2019-08-23 06:08] LABS: Hepatitis B Surface Antigen Nonreactive (Nonreactive)
[2019-08-23 07:21] VITALS: BP 142/64
[2019-08-23] MEDS: Insulin LISPRO 300 UNITS/3 ML VIAL SQ SCH (09:21)
[2019-08-23] MEDS: *HR* Pioglitazone 30 MG TABLET PO SCH (09:33)
[2019-08-23] MEDS: Gabapentin 100 MG CAPSULE PO SCH (09:33)
[2019-08-23] MEDS: amLODIPine 5 MG TABLET PO SCH (09:33)
[2019-08-23] MEDS: hydrALAZINE 25 MG TABLET PO SCH (09:33)
[2019-08-23] MEDS: *HR* Repaglinide 1 MG TABLET PO SCH (09:33)
[2019-08-23] MEDS: Calcium Acetate 667 MG CAPSULE PO SCH (09:33)
[2019-08-23] MEDS: Furosemide 40 MG TABLET PO SCH (09:34)
[2019-08-23] MEDS: traMADol 50 MG TABLET PO PRN (09:56)
[2019-08-23] MEDS ORDERED: Ondansetron 4 MG/2 ML VIAL IVP PRN (11:01)
[2019-08-23] MEDS ORDERED: Ondansetron ODT 4 MG TAB.RAPDIS SL PRN (11:21)
[2019-08-23] MEDS ORDERED: *HR* Warfarin 2.5 MG TABLET PO ONE (18:00)
== END 2019-08-23 11:27 | DRG 682 ==
LOC: EMEROOARM 15:40 → 2ANU 15:40 → SUATTDRO 08-21 17:23
PROVIDERS: ADMIT Internal Medicine; ATTEND Internal Medicine

== ENCOUNTER 2019-09-19 16:49 | Inpatient (IN) ==
[2019-09-19] MEDS ORDERED: Piperacillin/Tazobactam 3.375 GM in Water for inj. (sterile) 20 ML IVP ONE (17:18)
[2019-09-19] MEDS ORDERED: Piperacillin/Tazobactam 3.375 GM in 0.9 % Sodium Chloride Mini Bag 100 ML IVPB ONE (17:28)
[2019-09-19 18:06] LABS: Basophils % 0.3 %; Eosinophils # 0.1 K/mcL (0.0-0.6); Eosinophils % 0.7 %; Hematocrit 24.7 % (35.3-44.9); Hemoglobin 8.1 g/dL (11.5-15.4); Immature Granulocytes % 1.6 % (0-4); Lymphocytes # 2.2 K/mcL (0.6-4.6); Lymphocytes % 21.6 %; Mean Corpuscular HGB Conc 32.8 g/dL (31.6-35.5); Mean Corpuscular Hemoglobin 30.7 pg (28.0-33.3); Mean Corpuscular Volume 93.6 fL (83.0-100.0); Mean Platelet Volume 9.2 fL (9.4-12.4); Monocytes # 1.1 K/mcL (0.0-1.3); Monocytes % 10.6 %; Neutrophils # 6.7 K/mcL (1.6-8.9); Platelet Count 368 K/mcL (140-400); Red Blood Count 2.64 M/mcL (3.82-4.97); Red Cell Distribution Width 16.9 % (11.5-14.5); Segmented Neutrophils % 65.2 %; White Blood Count 10.3 K/mcL (4.3-11.1)
[2019-09-19 18:10] LABS: INR 2.2; Prothrombin Time 25.5 Seconds (9.4-12.1)
[2019-09-19 18:27] LABS: Alanine Aminotransferase 10 Units/L (7-52); Albumin 2.8 g/dL (3.5-5.7); Albumin/Globulin Ratio 0.5 (1.1-2.2); Alkaline Phosphatase 43 Units/L (34-104); Aspartate Amino Transferase 20 Units/L (13-39); BUN/Creatinine Ratio 6 (6-26); Bilirubin,Direct 0.2 mg/dL (0.0-0.2); Bilirubin,Indirect 0.2 mg/dL (0.0-1.0); Bilirubin,Total 0.4 mg/dL (0.3-1.0); Blood Urea Nitrogen 20 mg/dL (8-23); Calcium 8.8 mg/dL (8.6-10.3); Carbon Dioxide 34 mEq/L (23-29); Chloride 87 mEq/L (98-107); Globulin 5.4 g/dL (2.4-3.5); Glucose 111 mg/dL (70-105); Osmolality,Calculated 283 (280-300); Potassium 3.1 mEq/L (3.5-5.1); Sodium 135 mEq/L (136-145); Total Protein 8.2 g/dL (6.4-8.9); Troponin I < 0.03 ng/mL (< 0.04); eGFR For African Americans 15 (> 60); eGFR For Non-African Americans 13 (> 60)
[2019-09-19 19:09] LABS: Bilirubin,Urine Negative (Negative); Blood,Urine Negative (Negative); Clarity,Urine Turbid (Clear); Color,Urine Dark Yellow (Yellow); Glucose,Urine (UA) Normal (Normal); Ketones,Urine Negative (Negative); Leukocyte Esterase,Urine Large (Negative); Nitrite,Urine Negative (Negative); Protein,Urine 100 mg/dL (Neg-Trace); Specific Gravity,Urine 1.017 (1.010-1.025); Urobilinogen,Urine Normal (Normal)
[2019-09-19 19:10] LABS: Hyaline Casts,Urine Few per lpf (None-Few); Squamous Epithelial Cell,Urine Many per lpf (None-Few); WBC,Urine TNTC per hpf (0-3)
[2019-09-19 19:24] LABS: Bacteria,Urine Many per hpf (None-Few)
[2019-09-19] MEDS ORDERED: D5% in Water 1,000 ML IVC PRN (20:46)
[2019-09-19] MEDS ORDERED: Naloxone 0.4 MG/ML INJ IVP PRN ×2 (20:46→22:41)
[2019-09-19] MEDS ORDERED: Dextrose Gel 15 GM/37.5 ML TUBE PO PRN ×2 (20:46)
[2019-09-19] MEDS ORDERED: *HR* Dextrose 50 % in Water (Syg) 50 ML SYRINGE IVP PRN (20:46)
[2019-09-19 21:11] LABS: Amphetamine Screen,Urine Negative ng/mL (Cutoff=1000); Barbiturate Screen,Urine Negative ng/mL (Cutoff=200); Benzodiazepines Screen,Urine Negative ng/mL (Cutoff=200); Cannabinoid Screen,Urine Negative ng/mL (Cutoff = 50); Cocaine Screen,Urine Negative ng/mL (Cutoff= 300); Opiate Screen,Urine Negative ng/mL (Cutoff=300); Phencyclidine Screen,Urine Negative ng/mL (Cutoff=25)
[2019-09-19 21:31] LABS: Creatinine,Urine 89 mg/dL; Microalbum/Creatinine Ratio,Ur 581 mcg/mg (Less than 30); Microalbumin,Urine 517 mg/L
[2019-09-19 21:59] LABS: VBG HCO3 35 mEq/L (21-27); VBG PCO2 36 mmHg (41-51); VBG PO2 99 mmHg (25-50)
[2019-09-19 22:02] LABS: Estimated Average Glucose 157 mg/dl
[2019-09-19 22:38] LABS: Folate 15.9 ng/mL (3.0-16.0)
[2019-09-19 22:40] LABS: Vitamin B12 1045 pg/mL (250-1100)
[2019-09-19] MEDS ORDERED: Morphine Sulfate 2 MG/ML SYRINGE IVP ONE (22:41)
[2019-09-19] MEDS ORDERED: *HR* HYDROmorphone (PF) 1 MG/ML SYRINGE IVP ONE (23:19)
[2019-09-19] MEDS: Insulin LISPRO 300 UNITS/3 ML VIAL SQ SCH (23:59)
[2019-09-20 03:03] LABS: Basophils % 0.3 %; Eosinophils # 0.1 K/mcL (0.0-0.6); Eosinophils % 0.8 %; Hematocrit 25.2 % (35.3-44.9); Hemoglobin 8.3 g/dL (11.5-15.4); Immature Granulocytes % 0.8 % (0-4); Lymphocytes # 3.1 K/mcL (0.6-4.6); Lymphocytes % 28.8 %; Mean Corpuscular HGB Conc 32.9 g/dL (31.6-35.5); Mean Corpuscular Hemoglobin 30.7 pg (28.0-33.3); Mean Corpuscular Volume 93.3 fL (83.0-100.0); Mean Platelet Volume 8.7 fL (9.4-12.4); Monocytes # 1.1 K/mcL (0.0-1.3); Monocytes % 10.7 %; Neutrophils # 6.3 K/mcL (1.6-8.9); Platelet Count 347 K/mcL (140-400); Red Cell Distribution Width 16.8 % (11.5-14.5); Retculocyte # 0.08 M/mcL (0.05-0.10); Reticulocyte % 2.9 % (1.6-2.8); Segmented Neutrophils % 58.6 %; White Blood Count 10.7 K/mcL (4.3-11.1)
[2019-09-20 03:04] LABS: INR 2.2; Prothrombin Time 24.5 Seconds (9.4-12.1)
[2019-09-20 03:22] LABS: % Iron Saturation 19 % (15-50); Alanine Aminotransferase 10 Units/L (7-52); Albumin 2.8 g/dL (3.5-5.7); Albumin/Globulin Ratio 0.6 (1.1-2.2); Alkaline Phosphatase 42 Units/L (34-104); Aspartate Amino Transferase 20 Units/L (13-39); BUN/Creatinine Ratio 6 (6-26); Bilirubin,Total 0.5 mg/dL (0.3-1.0); Blood Urea Nitrogen 25 mg/dL (8-23); Calcium 8.5 mg/dL (8.6-10.3); Carbon Dioxide 31 mEq/L (23-29); Chloride 89 mEq/L (98-107); Chol/HDL Ratio 2.4 (0-4.9); Cholesterol 78 mg/dL (< 200); Glucose 84 mg/dL (70-105); HDL Cholesterol 33 mg/dL (40-59); Iron 23 mcg/dL (50-170); LDL Cholesterol,Calculated 33 mg/dL (0-99); Magnesium 1.8 mg/dL (1.6-2.6); Osmolality,Calculated 284 (280-300); Phosphorous 2.9 mg/dL (2.7-4.5); Potassium 3.1 mEq/L (3.5-5.1); Sodium 135 mEq/L (136-145); Total Protein 7.8 g/dL (6.4-8.9); Transferrin 88 mg/dL (203-362); Triglycerides 58 mg/dL (< 150); eGFR For African Americans 12 (> 60); eGFR For Non-African Americans 10 (> 60)
[2019-09-20 03:46] LABS: Ferritin > 1500 ng/mL (10-120)
[2019-09-20] MEDS: Insulin LISPRO 300 UNITS/3 ML VIAL SQ SCH ×4 (05:51→21:36)
[2019-09-20] MEDS ORDERED: Potassium Chloride Elixir 20 MEQ/15 ML UDC PO ONE ×2 (05:54)
[2019-09-20] MEDS ORDERED: Isovue-370 500 ML BOTTLE IVP ONE (05:56)
[2019-09-20] MEDS ORDERED: Vancomycin 1 EACH in 0.9 % Sodium Chloride 250 ML IVPB SCH (10:00)
[2019-09-20] MEDS ORDERED: Vancomycin 1 EACH in 0.9 % Sodium Chloride 250 ML IVPB PRN (10:30)
[2019-09-20] MEDS ORDERED: Vancomycin 500 MG in 0.9 % Sodium Chloride Mini Bag 100 ML IVPB ONE (11:00)
[2019-09-20 11:05] LABS: C-Reactive Protein 139 mg/L (Less than 10)
[2019-09-20] MEDS ORDERED: Insulin LISPRO 300 UNITS/3 ML VIAL SQ SCH (16:30)
[2019-09-20] MEDS: Piperacillin/Tazobactam 3.375 GM in 0.9 % Sodium Chloride Mini Bag 100 ML IVPB SCH (17:27)
[2019-09-20] MEDS: carvediloL 25 MG TABLET PO SCH (17:27)
[2019-09-20] MEDS ORDERED: *HR* Warfarin 2.5 MG TABLET PO ONE (18:00)
[2019-09-20] MEDS ORDERED: Warfarin perPT PO PRN (18:00)
[2019-09-20] MEDS ORDERED: *HR* Heparin 5,000 UNIT/ML VIAL SQ SCH (18:00)
[2019-09-20] MEDS ORDERED: carvediloL 25 MG TABLET PO SCH (21:00)
[2019-09-21 03:47] LABS: Hepatitis B Surface Antigen Nonreactive (Nonreactive)
[2019-09-21 05:10] LABS: Hepatitis B Surface Antibody 7.09 mIU/mL
[2019-09-21] MEDS: Piperacillin/Tazobactam 3.375 GM in 0.9 % Sodium Chloride Mini Bag 100 ML IVPB SCH (06:12)
[2019-09-21 06:40] LABS: Basophils % 0.3 %; Eosinophils # 0.2 K/mcL (0.0-0.6); Eosinophils % 1.3 %; Hematocrit 25.3 % (35.3-44.9); Hemoglobin 8.1 g/dL (11.5-15.4); Immature Granulocytes % 0.6 % (0-4); Lymphocytes # 2.9 K/mcL (0.6-4.6); Lymphocytes % 25.5 %; Mean Corpuscular Hemoglobin 31.3 pg (28.0-33.3); Mean Corpuscular Volume 97.7 fL (83.0-100.0); Mean Platelet Volume 8.9 fL (9.4-12.4); Monocytes # 1.1 K/mcL (0.0-1.3); Nucleated Red Blood Cells 0.2 /100 WBC (0); Platelet Count 337 K/mcL (140-400); Red Blood Count 2.59 M/mcL (3.82-4.97); Red Cell Distribution Width 16.8 % (11.5-14.5); Segmented Neutrophils % 62.3 %; White Blood Count 11.3 K/mcL (4.3-11.1)
[2019-09-21 06:42] LABS: INR 2.1; Prothrombin Time 23.7 Seconds (9.4-12.1)
[2019-09-21 07:02] LABS: Calcium 8.8 mg/dL (8.6-10.3); Magnesium 2.2 mg/dL (1.6-2.6); Phosphorous 3.9 mg/dL (2.7-4.5); Potassium 3.6 mEq/L (3.5-5.1)
[2019-09-21] MEDS ORDERED: *HR* Heparin 10,000 UNIT/10 ML VIAL ONE (07:19)
[2019-09-21] MEDS ORDERED: Isovue-250 100 ML INFUS..BTL ONE (07:19)
[2019-09-21] MEDS ORDERED: 0.9 % Sodium Chloride 1,000 ML ONE (07:20)
[2019-09-21] MEDS ORDERED: 0.9 % Sodium Chloride 250 ML IVC PRN (07:22)
[2019-09-21] MEDS ORDERED: 0.9 % Sodium Chloride 1,000 ML IVC SCH (07:30)
[2019-09-21] MEDS ORDERED: 0.9 % Sodium Chloride 1,000 ML PRIME SCH (07:30)
[2019-09-21] MEDS ORDERED: Isovue-300 150 ML INFUS..BTL ONE (08:44)
[2019-09-21] MEDS: Insulin LISPRO 300 UNITS/3 ML VIAL SQ SCH ×4 (10:23→19:47)
[2019-09-21] MEDS: carvediloL 25 MG TABLET PO SCH ×2 (11:03→17:27)
[2019-09-21] MEDS: Vitamin B Complex/Vit C/Vit E 1 EACH TABLET PO SCH (11:03)
[2019-09-21] MEDS: Aspirin Enteric Coated 81 MG Tablet PO SCH (11:03)
[2019-09-21] MEDS: cefTRIAXone 2,000 MG in 0.9 % Sodium Chloride Mini Bag 100 ML IVPB SCH (17:41)
[2019-09-21] MEDS ORDERED: *HR* Warfarin 2.5 MG TABLET PO ONE (18:00)
[2019-09-21] MEDS: MetroNIDAZOLE 500 MG/100 ML 500 MG/100 ML BAG IVPB SCH ×2 (19:40→23:50)
[2019-09-22] MEDS: Insulin LISPRO 300 UNITS/3 ML VIAL SQ SCH ×4 (07:42→22:15)
[2019-09-22] MEDS: Vitamin B Complex/Vit C/Vit E 1 EACH TABLET PO SCH (07:55)
[2019-09-22] MEDS: Aspirin Enteric Coated 81 MG Tablet PO SCH (07:55)
[2019-09-22] MEDS: carvediloL 25 MG TABLET PO SCH ×2 (07:55→16:56)
[2019-09-22] MEDS: cefTRIAXone 2,000 MG in 0.9 % Sodium Chloride Mini Bag 100 ML IVPB SCH (07:56)
[2019-09-22] MEDS: MetroNIDAZOLE 500 MG/100 ML 500 MG/100 ML BAG IVPB SCH ×2 (08:29→16:57)
[2019-09-22] MEDS ORDERED: Aminoglycoside Consult 1 EACH MC ONE (09:43)
[2019-09-22 10:29] LABS: INR 2.4; Prothrombin Time 27.2 Seconds (9.4-12.1)
[2019-09-22 10:39] LABS: Hematocrit 25.2 % (35.3-44.9); Hemoglobin 8.2 g/dL (11.5-15.4); Mean Corpuscular HGB Conc 32.5 g/dL (31.6-35.5); Mean Corpuscular Hemoglobin 30.3 pg (28.0-33.3); Platelet Count 367 K/mcL (140-400); Red Blood Count 2.71 M/mcL (3.82-4.97); Red Cell Distribution Width 16.7 % (11.5-14.5); White Blood Count 12.2 K/mcL (4.3-11.1)
[2019-09-22 10:40] LABS: Calcium 8.5 mg/dL (8.6-10.3); Potassium 3.9 mEq/L (3.5-5.1)
[2019-09-22] MEDS ORDERED: *HR* Warfarin 2.5 MG TABLET PO ONE (18:00)
[2019-09-22] MEDS ORDERED: *HR* OxyCODONE/APAP 5/325 TABLET PO PRN (18:22)
[2019-09-22] MEDS ORDERED: Fluconazole 200 MG/100 ML 200 MG/100 ML BAG IVPB ONE (19:00)
[2019-09-22 21:55] LABS: Kappa Qnt Free Light Chains 46.9 mg/dL (0.33-1.94); Lambda Qnt Free Light Chains 25.4 mg/dL (0.57-2.63)
[2019-09-23] MEDS: MetroNIDAZOLE 500 MG/100 ML 500 MG/100 ML BAG IVPB SCH ×3 (00:13→17:36)
[2019-09-23] MEDS ORDERED: 0.9 % Sodium Chloride 250 ML IVC PRN (06:10)
[2019-09-23 08:58] LABS: Hematocrit 23.9 % (35.3-44.9); Hemoglobin 7.7 g/dL (11.5-15.4); INR 2.8; Mean Corpuscular HGB Conc 32.2 g/dL (31.6-35.5); Mean Corpuscular Hemoglobin 30.2 pg (28.0-33.3); Mean Corpuscular Volume 93.7 fL (83.0-100.0); Platelet Count 377 K/mcL (140-400); Red Blood Count 2.55 M/mcL (3.82-4.97); Red Cell Distribution Width 16.6 % (11.5-14.5); White Blood Count 13.2 K/mcL (4.3-11.1)
[2019-09-23 09:11] LABS: Calcium 9.1 mg/dL (8.6-10.3); Potassium 3.5 mEq/L (3.5-5.1)
[2019-09-23] MEDS: cefTRIAXone 2,000 MG in 0.9 % Sodium Chloride Mini Bag 100 ML IVPB SCH (09:41)
[2019-09-23] MEDS: carvediloL 25 MG TABLET PO SCH ×2 (09:46→17:37)
[2019-09-23] MEDS: Vitamin B Complex/Vit C/Vit E 1 EACH TABLET PO SCH (09:46)
[2019-09-23] MEDS: Aspirin Enteric Coated 81 MG Tablet PO SCH (09:46)
[2019-09-23] MEDS ORDERED: Ampicillin 1,000 MG in 0.9 % Sodium Chloride Mini Bag 100 ML IVPB ONE (09:57)
[2019-09-23] MEDS: Insulin LISPRO 300 UNITS/3 ML VIAL SQ SCH ×4 (09:58→21:41)
[2019-09-23] MEDS: *HR* FentaNYL PATCH 25 MCG PATCH TD SCH (11:06)
[2019-09-23] MEDS: Fluconazole 100 MG TABLET PO SCH (11:07)
[2019-09-23] MEDS: Ampicillin 2 GM in 0.9 % Sodium Chloride Mini Bag 100 ML IVPB SCH (17:27)
[2019-09-23] MEDS ORDERED: *HR* Warfarin 1 MG TABLET PO ONE (18:00)
[2019-09-23 18:57] LABS: Alpha 2 Globulin (PEP) 1.21 g/dL (0.48-1.05); Beta Globulin (PEP) 1.11 g/dL (0.48-1.10)
[2019-09-24] MEDS: MetroNIDAZOLE 500 MG/100 ML 500 MG/100 ML BAG IVPB SCH ×3 (02:36→17:34)
[2019-09-24 05:34] LABS: INR 3.4; Prothrombin Time 38.6 Seconds (9.4-12.1)
[2019-09-24 05:58] LABS: Hematocrit 24.6 % (35.3-44.9); Hemoglobin 7.9 g/dL (11.5-15.4); Mean Corpuscular HGB Conc 32.1 g/dL (31.6-35.5); Mean Corpuscular Hemoglobin 30.7 pg (28.0-33.3); Mean Corpuscular Volume 95.7 fL (83.0-100.0); Mean Platelet Volume 9.1 fL (9.4-12.4); Platelet Count 391 K/mcL (140-400); Red Blood Count 2.57 M/mcL (3.82-4.97); Red Cell Distribution Width 17.2 % (11.5-14.5); White Blood Count 11.8 K/mcL (4.3-11.1)
[2019-09-24 06:16] LABS: Calcium 8.8 mg/dL (8.6-10.3); Potassium 3.7 mEq/L (3.5-5.1)
[2019-09-24] MEDS: Insulin LISPRO 300 UNITS/3 ML VIAL SQ SCH ×4 (08:18→21:09)
[2019-09-24 09:12] LABS: IFE Reflexed NOT DONE
[2019-09-24] MEDS: Fluconazole 100 MG TABLET PO SCH (09:37)
[2019-09-24] MEDS: Vitamin B Complex/Vit C/Vit E 1 EACH TABLET PO SCH (09:37)
[2019-09-24] MEDS: carvediloL 25 MG TABLET PO SCH ×2 (09:37→17:36)
[2019-09-24] MEDS: Aspirin Enteric Coated 81 MG Tablet PO SCH (09:37)
[2019-09-24] MEDS: Ampicillin 2 GM in 0.9 % Sodium Chloride Mini Bag 100 ML IVPB SCH (17:36)
[2019-09-25] MEDS: MetroNIDAZOLE 500 MG/100 ML 500 MG/100 ML BAG IVPB SCH ×2 (00:35→09:38)
[2019-09-25] MEDS ORDERED: Ondansetron 4 MG/2 ML VIAL ONE (05:28)
[2019-09-25] MEDS: Ondansetron 4 MG/2 ML VIAL IVP PRN ×3 (05:32→22:30)
[2019-09-25 06:10] LABS: Hemoglobin 7.3 g/dL (11.5-15.4); Mean Corpuscular HGB Conc 31.7 g/dL (31.6-35.5); Mean Corpuscular Hemoglobin 30.4 pg (28.0-33.3); Mean Corpuscular Volume 95.8 fL (83.0-100.0); Mean Platelet Volume 8.6 fL (9.4-12.4); Platelet Count 356 K/mcL (140-400); Red Cell Distribution Width 16.9 % (11.5-14.5); White Blood Count 13.8 K/mcL (4.3-11.1)
[2019-09-25 06:17] LABS: INR 3.6; Prothrombin Time 41.3 Seconds (9.4-12.1)
[2019-09-25 06:29] LABS: Calcium 8.9 mg/dL (8.6-10.3); Potassium 3.8 mEq/L (3.5-5.1)
[2019-09-25] MEDS: Insulin LISPRO 300 UNITS/3 ML VIAL SQ SCH ×4 (09:27→22:21)
[2019-09-25] MEDS: Vitamin B Complex/Vit C/Vit E 1 EACH TABLET PO SCH (14:20)
[2019-09-25] MEDS: Aspirin Enteric Coated 81 MG Tablet PO SCH (14:20)
[2019-09-25] MEDS: carvediloL 25 MG TABLET PO SCH ×2 (14:20→14:21)
[2019-09-25] MEDS: Fluconazole 100 MG TABLET PO SCH (14:21)
[2019-09-25 15:19] LABS: Hematocrit 23.1 % (35.3-44.9); Hemoglobin 7.4 g/dL (11.5-15.4)
[2019-09-25] MEDS: Piperacillin/Tazobactam 3.375 GM in 0.9 % Sodium Chloride Mini Bag 100 ML IVPB SCH (17:56)
[2019-09-26 05:35] LABS: Hematocrit 22.2 % (35.3-44.9); Hemoglobin 6.9 g/dL (11.5-15.4); Mean Corpuscular HGB Conc 31.1 g/dL (31.6-35.5); Mean Corpuscular Hemoglobin 30.5 pg (28.0-33.3); Mean Corpuscular Volume 98.2 fL (83.0-100.0); Mean Platelet Volume 9.1 fL (9.4-12.4); Platelet Count 397 K/mcL (140-400); Red Blood Count 2.26 M/mcL (3.82-4.97); Red Cell Distribution Width 17.2 % (11.5-14.5); White Blood Count 14.1 K/mcL (4.3-11.1)
[2019-09-26 05:46] LABS: INR 4.4
[2019-09-26 05:55] LABS: Calcium 9.3 mg/dL (8.6-10.3); Potassium 4.3 mEq/L (3.5-5.1)
[2019-09-26] MEDS: Piperacillin/Tazobactam 3.375 GM in 0.9 % Sodium Chloride Mini Bag 100 ML IVPB SCH ×2 (06:12→17:28)
[2019-09-26] MEDS ORDERED: 0.9 % Sodium Chloride 250 ML IVC PRN (08:04)
[2019-09-26] MEDS ORDERED: *HR* Heparin 10,000 UNIT/10 ML VIAL IV PRN (08:04)
[2019-09-26] MEDS ORDERED: 0.9 % Sodium Chloride 250 ML IVC SCH (08:15)
[2019-09-26] MEDS: Insulin LISPRO 300 UNITS/3 ML VIAL SQ SCH ×4 (08:17→22:52)
[2019-09-26] MEDS: Vitamin B Complex/Vit C/Vit E 1 EACH TABLET PO SCH (08:18)
[2019-09-26] MEDS: Aspirin Enteric Coated 81 MG Tablet PO SCH (08:18)
[2019-09-26] MEDS: Fluconazole 100 MG TABLET PO SCH (08:23)
[2019-09-26] MEDS: carvediloL 25 MG TABLET PO SCH ×2 (10:43→17:35)
[2019-09-26] MEDS: *HR* FentaNYL PATCH 25 MCG PATCH TD SCH (13:48)
[2019-09-26] MEDS ORDERED: *HR* Phytonadione 5 MG TABLET PO ONE (18:40)
[2019-09-26] MEDS: Ondansetron 4 MG/2 ML VIAL IVP PRN (22:52)
[2019-09-27] MEDS: Ondansetron 4 MG/2 ML VIAL IVP PRN (06:10)
[2019-09-27] MEDS: Piperacillin/Tazobactam 3.375 GM in 0.9 % Sodium Chloride Mini Bag 100 ML IVPB SCH ×2 (06:11→16:34)
[2019-09-27 06:24] LABS: INR 4.3
[2019-09-27 06:28] LABS: Prothrombin Time 48.5 Seconds (9.4-12.1)
[2019-09-27 06:34] LABS: Hematocrit 31.9 % (35.3-44.9); Hemoglobin 10.3 g/dL (11.5-15.4); Mean Corpuscular HGB Conc 32.3 g/dL (31.6-35.5); Mean Corpuscular Hemoglobin 30.2 pg (28.0-33.3); Mean Corpuscular Volume 93.5 fL (83.0-100.0); Mean Platelet Volume 9.2 fL (9.4-12.4); Platelet Count 354 K/mcL (140-400); Red Blood Count 3.41 M/mcL (3.82-4.97); White Blood Count 17.8 K/mcL (4.3-11.1)
[2019-09-27 06:48] LABS: Calcium 8.9 mg/dL (8.6-10.3); Potassium 4.3 mEq/L (3.5-5.1)
[2019-09-27] MEDS ORDERED: *HR* Phytonadione 5 MG TABLET PO ONE ×2 (07:26→17:47)
[2019-09-27] MEDS ORDERED: 0.9 % Sodium Chloride 250 ML IVC PRN (07:47)
[2019-09-27] MEDS: Vitamin B Complex/Vit C/Vit E 1 EACH TABLET PO SCH (08:36)
[2019-09-27] MEDS: Aspirin Enteric Coated 81 MG Tablet PO SCH (08:36)
[2019-09-27] MEDS: Fluconazole 100 MG TABLET PO SCH (08:36)
[2019-09-27] MEDS: Insulin LISPRO 300 UNITS/3 ML VIAL SQ SCH ×4 (08:36→20:20)
[2019-09-27] MEDS: carvediloL 25 MG TABLET PO SCH ×2 (08:36→16:33)
[2019-09-27] MEDS ORDERED: Albumin 25% 25gram/100mL 25 GM/100 ML IV.SOLN IVPB ONE (12:36)
[2019-09-27] MEDS: Furosemide 20 MG TABLET PO SCH (16:34)
[2019-09-27 17:05] LABS: INR 3.3; Prothrombin Time 37.5 Seconds (9.4-12.1)
[2019-09-28] MEDS: Piperacillin/Tazobactam 3.375 GM in 0.9 % Sodium Chloride Mini Bag 100 ML IVPB SCH ×2 (06:46→17:42)
[2019-09-28] MEDS: Fluconazole 100 MG TABLET PO SCH (08:45)
[2019-09-28] MEDS: Aspirin Enteric Coated 81 MG Tablet PO SCH (08:45)
[2019-09-28] MEDS: Vitamin B Complex/Vit C/Vit E 1 EACH TABLET PO SCH (08:45)
[2019-09-28] MEDS: Furosemide 20 MG TABLET PO SCH ×2 (08:45→17:42)
[2019-09-28] MEDS: carvediloL 25 MG TABLET PO SCH ×2 (08:45→17:42)
[2019-09-28] MEDS: Insulin LISPRO 300 UNITS/3 ML VIAL SQ SCH ×4 (08:46→21:08)
[2019-09-28 09:10] LABS: INR 1.8; Prothrombin Time 19.9 Seconds (9.4-12.1)
[2019-09-28 09:25] LABS: % Iron Saturation 30 % (15-50); BUN/Creatinine Ratio 6 (6-26); Blood Urea Nitrogen 36 mg/dL (8-23); Calcium 9.2 mg/dL (8.6-10.3); Carbon Dioxide 27 mEq/L (23-29); Chloride 95 mEq/L (98-107); Glucose 152 mg/dL (70-105); Iron 33 mcg/dL (50-170); Osmolality,Calculated 299 (280-300); Potassium 4.5 mEq/L (3.5-5.1); Sodium 139 mEq/L (136-145); Transferrin 78 mg/dL (203-362); eGFR For African Americans 8 (> 60); eGFR For Non-African Americans 7 (> 60)
[2019-09-28 09:49] LABS: Folate 21.6 ng/mL (3.0-16.0)
[2019-09-28 09:59] LABS: Ferritin > 1500 ng/mL (10-120)
[2019-09-28 13:06] LABS: Basophils # 0.1 K/mcL (0.0-0.2); Basophils % 0.4 %; Eosinophils # 0.2 K/mcL (0.0-0.6); Eosinophils % 0.9 %; Hematocrit 26.5 % (35.3-44.9); Immature Granulocytes % 1.6 % (0-4); Lymphocytes # 2.9 K/mcL (0.6-4.6); Lymphocytes % 17.8 %; Mean Corpuscular HGB Conc 31.7 g/dL (31.6-35.5); Mean Corpuscular Hemoglobin 30.5 pg (28.0-33.3); Mean Corpuscular Volume 96.4 fL (83.0-100.0); Mean Platelet Volume 8.8 fL (9.4-12.4); Monocytes # 1.5 K/mcL (0.0-1.3); Neutrophils # 11.3 K/mcL (1.6-8.9); Nucleated Red Blood Cells 0.3 /100 WBC (0); Platelet Count 278 K/mcL (140-400); Red Blood Count 2.75 M/mcL (3.82-4.97); Red Cell Distribution Width 17.9 % (11.5-14.5); Segmented Neutrophils % 70.3 %; White Blood Count 16.1 K/mcL (4.3-11.1)
[2019-09-28 13:08] LABS: Hemoglobin 8.4 g/dL (11.5-15.4)
[2019-09-29 04:45] LABS: Hematocrit 27.6 % (35.3-44.9); Hemoglobin 8.9 g/dL (11.5-15.4); Mean Corpuscular HGB Conc 32.2 g/dL (31.6-35.5); Mean Corpuscular Volume 92.9 fL (83.0-100.0); Mean Platelet Volume 8.9 fL (9.4-12.4); Platelet Count 300 K/mcL (140-400); Red Blood Count 2.97 M/mcL (3.82-4.97); White Blood Count 18.4 K/mcL (4.3-11.1)
[2019-09-29 04:51] LABS: INR 1.5; Prothrombin Time 16.9 Seconds (9.4-12.1)
[2019-09-29 05:04] LABS: Calcium 9.3 mg/dL (8.6-10.3); Potassium 4.3 mEq/L (3.5-5.1)
[2019-09-29] MEDS: Piperacillin/Tazobactam 3.375 GM in 0.9 % Sodium Chloride Mini Bag 100 ML IVPB SCH ×2 (05:47→18:28)
[2019-09-29] MEDS: Insulin LISPRO 300 UNITS/3 ML VIAL SQ SCH ×3 (07:24→21:37)
[2019-09-29] MEDS: Aspirin Enteric Coated 81 MG Tablet PO SCH (07:59)
[2019-09-29] MEDS: carvediloL 25 MG TABLET PO SCH ×3 (07:59→16:08)
[2019-09-29] MEDS: Fluconazole 100 MG TABLET PO SCH (07:59)
[2019-09-29] MEDS: Vitamin B Complex/Vit C/Vit E 1 EACH TABLET PO SCH (07:59)
[2019-09-29] MEDS: Furosemide 20 MG TABLET PO SCH ×2 (07:59→16:08)
[2019-09-29] MEDS ORDERED: *HR* Propofol 200 MG/20 ML VIAL IVP ONE ×2 (08:43→10:06)
[2019-09-29] MEDS ORDERED: *HR* FentaNYL (PF) 100 MCG/2 ML VIAL ONE ×2 (08:43→10:09)
[2019-09-29] MEDS ORDERED: Dexamethasone 4 MG/ML VIAL ONE (08:43)
[2019-09-29] MEDS ORDERED: Lidocaine -MPF 2% 2 ML VIAL ONE (08:43)
[2019-09-29] MEDS ORDERED: Ondansetron 4 MG/2 ML VIAL ONE (08:43)
[2019-09-29] MEDS ORDERED: Total Joint Mixture (50 ml) IR ONE (09:30)
[2019-09-29] MEDS ORDERED: ceFAZolin 1,000 MG, Sodium Chloride IRRigation 1,000 ML IR ONE (09:30)
[2019-09-29] MEDS ORDERED: *HR* PHENYLEPHRINE 1,000 MCG/10 ML SYRINGE IVP ONE ×4 (10:07→13:11)
[2019-09-29] MEDS ORDERED: EPHEDrine 50 MG/ML VIAL ONE (10:42)
[2019-09-29] MEDS ORDERED: Naloxone 0.4 MG/ML INJ IVP PRN (12:18)
[2019-09-29] MEDS ORDERED: Ondansetron 4 MG/2 ML VIAL IVP PRN (12:18)
[2019-09-29] MEDS ORDERED: 0.9 % Sodium Chloride 1,000 ML PRIME SCH (12:18)
[2019-09-29] MEDS ORDERED: 0.9 % Sodium Chloride 250 ML IVC PRN ×2 (12:18)
[2019-09-29] MEDS ORDERED: *HR* Heparin 10,000 UNIT/10 ML VIAL IV PRN (12:18)
[2019-09-29] MEDS ORDERED: D5% in Water 1,000 ML IVC PRN (12:18)
[2019-09-29] MEDS ORDERED: Dextrose Gel 15 GM/37.5 ML TUBE PO PRN ×2 (12:18)
[2019-09-29] MEDS ORDERED: 0.9 % Sodium Chloride 250 ML IVC SCH (12:18)
[2019-09-29] MEDS ORDERED: *HR* Dextrose 50 % in Water (Syg) 50 ML SYRINGE IVP PRN (12:18)
[2019-09-29] MEDS ORDERED: *HR* FentaNYL PATCH 25 MCG PATCH TD SCH (13:00)
[2019-09-29] MEDS: *HR* FentaNYL PATCH 25 MCG PATCH TD SCH (13:24)
[2019-09-30 04:49] LABS: Basophils % 0.2 %; Eosinophils % 0.1 %; Hematocrit 24.5 % (35.3-44.9); Hemoglobin 7.6 g/dL (11.5-15.4); Immature Granulocytes % 1.4 % (0-4); Lymphocytes # 3.6 K/mcL (0.6-4.6); Lymphocytes % 17.3 %; Mean Corpuscular Volume 96.8 fL (83.0-100.0); Mean Platelet Volume 9.4 fL (9.4-12.4); Monocytes # 1.8 K/mcL (0.0-1.3); Monocytes % 8.9 %; Neutrophils # 14.8 K/mcL (1.6-8.9); Nucleated Red Blood Cells 0.1 /100 WBC (0); Platelet Count 285 K/mcL (140-400); Red Blood Count 2.53 M/mcL (3.82-4.97); Red Cell Distribution Width 17.9 % (11.5-14.5); Segmented Neutrophils % 72.1 %; White Blood Count 20.6 K/mcL (4.3-11.1)
[2019-09-30 05:13] LABS: Calcium 8.6 mg/dL (8.6-10.3); Potassium 5.4 mEq/L (3.5-5.1)
[2019-09-30] MEDS: Piperacillin/Tazobactam 3.375 GM in 0.9 % Sodium Chloride Mini Bag 100 ML IVPB SCH ×2 (05:24→18:21)
[2019-09-30] MEDS: Insulin LISPRO 300 UNITS/3 ML VIAL SQ SCH ×4 (07:47→20:37)
[2019-09-30] MEDS ORDERED: 0.9 % Sodium Chloride 250 ML IVC PRN (08:37)
[2019-09-30] MEDS: Vitamin B Complex/Vit C/Vit E 1 EACH TABLET PO SCH (08:50)
[2019-09-30] MEDS: Furosemide 20 MG TABLET PO SCH ×2 (08:50→18:21)
[2019-09-30] MEDS: carvediloL 25 MG TABLET PO SCH ×2 (08:50→18:21)
[2019-09-30] MEDS ORDERED: Aspirin Enteric Coated 81 MG Tablet PO SCH (09:00)
[2019-09-30] MEDS ORDERED: *HR* Heparin 5,000 UNIT/ML VIAL SQ SCH (18:00)
[2019-10-01] MEDS: Piperacillin/Tazobactam 3.375 GM in 0.9 % Sodium Chloride Mini Bag 100 ML IVPB SCH ×2 (05:57→18:16)
[2019-10-01 06:26] LABS: Hematocrit 29.2 % (35.3-44.9); Hemoglobin 9.3 g/dL (11.5-15.4); Mean Corpuscular HGB Conc 31.8 g/dL (31.6-35.5); Mean Corpuscular Hemoglobin 30.3 pg (28.0-33.3); Mean Corpuscular Volume 95.1 fL (83.0-100.0); Mean Platelet Volume 9.3 fL (9.4-12.4); Platelet Count 229 K/mcL (140-400); Red Blood Count 3.07 M/mcL (3.82-4.97); Red Cell Distribution Width 18.6 % (11.5-14.5); White Blood Count 23.7 K/mcL (4.3-11.1)
[2019-10-01 06:44] LABS: Potassium 5.7 mEq/L (3.5-5.1)
[2019-10-01 07:02] LABS: Hematocrit 28.7 % (35.3-44.9); Hemoglobin 9.5 g/dL (11.5-15.4)
[2019-10-01] MEDS: Insulin LISPRO 300 UNITS/3 ML VIAL SQ SCH ×2 (07:55→18:15)
[2019-10-01] MEDS ORDERED: Acetaminophen IV 1,000 MG/100 ML INFUS..BTL IVPB ONE (08:28)
[2019-10-01] MEDS ORDERED: 0.9 % Sodium Chloride 500 ML ONE ×2 (08:46→09:43)
[2019-10-01 09:02] LABS: Eosinophils % 0.1 %
[2019-10-01 09:02] LABS: VBG HCO3 17 mEq/L (21-27); VBG PCO2 29 mmHg (41-51); VBG PH 7.37 pH Units (7.32-7.42); VBG PO2 132 mmHg (25-50)
[2019-10-01 09:04] LABS: Basophils # 0.2 K/mcL (0.0-0.2); Basophils % 0.6 %; Hematocrit 29.9 % (35.3-44.9); Hemoglobin 9.5 g/dL (11.5-15.4); Immature Granulocytes % 4.5 % (0-4); Lymphocytes # 4.3 K/mcL (0.6-4.6); Lymphocytes % 15.9 %; Mean Corpuscular HGB Conc 31.8 g/dL (31.6-35.5); Mean Corpuscular Hemoglobin 30.5 pg (28.0-33.3); Mean Corpuscular Volume 96.1 fL (83.0-100.0); Mean Platelet Volume 9.5 fL (9.4-12.4); Monocytes # 1.8 K/mcL (0.0-1.3); Monocytes % 6.5 %; Neutrophils # 19.7 K/mcL (1.6-8.9); Nucleated Red Blood Cells 3.1 /100 WBC (0); Platelet Count 232 K/mcL (140-400); Red Blood Count 3.11 M/mcL (3.82-4.97); Red Cell Distribution Width 18.6 % (11.5-14.5); Segmented Neutrophils % 72.4 %; White Blood Count 27.2 K/mcL (4.3-11.1)
[2019-10-01] MEDS ORDERED: Artificial Tears SOLN 15 ML BOTTLE BOTH EYES PRN (09:09)
[2019-10-01] MEDS ORDERED: Norepinephrine 4 MG in 0.9 % Sodium Chloride 250 ML IVC SCH (09:15)
[2019-10-01 09:21] LABS: Calcium 9.2 mg/dL (8.6-10.3); Potassium 6.3 mEq/L (3.5-5.1)
[2019-10-01 09:30] LABS: Platelet Estimate Normal (Normal)
[2019-10-01] MEDS ORDERED: Albumin Human 5% 25.0 GM/500 ML VIAL ONE (10:11)
[2019-10-01 11:04] LABS: ABG Base Excess -5 mEq/L (-2 to 3); ABG HCO3 19 mEq/L (21-27); ABG Oxygen Saturation 100 % (95-98); ABG PCO2 30 mmHg (35-45); ABG PO2 504 mmHg (85-104); ABG TCO2 20 mEq/L (20-26); Blood Gas VT 400 cc
[2019-10-01 11:09] LABS: Albumin 2.9 g/dL (3.5-5.7)
[2019-10-01] MEDS: Vitamin B Complex/Vit C/Vit E 1 EACH TABLET PO SCH (11:26)
[2019-10-01] MEDS: FentaNYL (PF) 1,000 MCG in 0.9 % Sodium Chloride 80 ML IVC SCH ×2 (11:27→22:05)
[2019-10-01] MEDS ORDERED: Calcium Gluconate 1gm/50mL 1 GM/50 ML BAG IVPB ONE (11:38)
[2019-10-01] MEDS ORDERED: Sodium Bicarbonate 150 MEQ in D5% in Water 1,000 ML IVC SCH (11:45)
[2019-10-01 11:53] LABS: Hematocrit 24.8 % (35.3-44.9); Hemoglobin 8.3 g/dL (11.5-15.4)
[2019-10-01] MEDS ORDERED: Vancomycin 1 EACH in 0.9 % Sodium Chloride 250 ML IVPB SCH (12:00)
[2019-10-01 12:08] LABS: Albumin 2.6 g/dL (3.5-5.7); Calcium 8.2 mg/dL (8.6-10.3); Phosphorous 7.1 mg/dL (2.7-4.5); Potassium 5.7 mEq/L (3.5-5.1)
[2019-10-01] MEDS: Albuterol 2.5 MG/3 ML NEBULIZER IH SCH ×7 (12:19→23:13)
[2019-10-01] MEDS: Pantoprazole 40 MG VIAL IVP SCH (12:19)
[2019-10-01] MEDS: Vasopressin 40 UNIT in D5% in Water 100 ML IVC SCH (12:20)
[2019-10-01] MEDS: Hydrocortisone Sodium Succ 100 MG/2 ML VIAL IVP SCH ×2 (13:01→18:15)
[2019-10-01] MEDS ORDERED: Insulin Human Regular 10 UNIT in 0.9 % Sodium Chloride 10 ML IV ONE (13:21)
[2019-10-01] MEDS ORDERED: *HR* Dextrose 50 % in Water (Syg) 50 ML SYRINGE IVP ONE (13:24)
[2019-10-01] MEDS: Norepinephrine 8 MG in 0.9 % Sodium Chloride 250 ML IVC SCH ×2 (14:41→20:51)
[2019-10-01 15:24] LABS: ABG Base Excess -7 mEq/L (-2 to 3); ABG HCO3 18 mEq/L (21-27); ABG Oxygen Saturation 100 % (95-98); ABG PCO2 37 mmHg (35-45); ABG PH 7.31 pH Units (7.32-7.45); ABG PO2 186 mmHg (85-104); ABG TCO2 19 mEq/L (20-26); Blood Gas VT 400 cc
[2019-10-01] MEDS: Artificial Tears SOLN 15 ML BOTTLE BOTH EYES SCH ×4 (15:47→23:59)
[2019-10-01 16:27] LABS: Calcium 8.1 mg/dL (8.6-10.3); Potassium 4.2 mEq/L (3.5-5.1)
[2019-10-01 16:49] LABS: Hematocrit 25.8 % (35.3-44.9)
[2019-10-01 19:02] LABS: Hemoglobin 8.1 g/dL (11.5-15.4)
[2019-10-01] MEDS: Chlorhexidine Rinse 15 ML MOUTHWASH MM SCH (20:51)
[2019-10-02] MEDS ORDERED: *HR* Dextrose 50 % in Water (Syg) 50 ML SYRINGE IVP PRN (00:13)
[2019-10-02] MEDS ORDERED: D5% in 0.45% NACL w KCl 20 MEQ/1,000 ML MLS IVC PRN (00:13)
[2019-10-02] MEDS ORDERED: Insulin Regular, Human 100 UNIT/ML IV ONE (00:13)
[2019-10-02] MEDS ORDERED: Insulin Regular, Human 100 UNIT/ML IV PRN ×2 (00:13)
[2019-10-02] MEDS ORDERED: D5% in 0.45% NACL 1,000 ML IVC PRN (00:13)
[2019-10-02] MEDS ORDERED: 0.45 % Sodium Chloride w/KCl 20 MEQ/1,000 ML MLS IVC PRN ×2 (00:15)
[2019-10-02] MEDS ORDERED: 0.9 % Sodium Chloride 1,000 ML IVC PRN ×2 (00:15)
[2019-10-02 00:35] LABS: ABG Base Excess 2 mEq/L (-2 to 3); ABG HCO3 25 mEq/L (21-27); ABG Oxygen Saturation 100 % (95-98); ABG PCO2 33 mmHg (35-45); ABG PH 7.48 pH Units (7.32-7.45); ABG PO2 157 mmHg (85-104); ABG TCO2 26 mEq/L (20-26); Blood Gas Modality ASSIST CONTROL; Blood Gas VT 400 cc
[2019-10-02 00:48] LABS: Basophils % 0.2 %; Hematocrit 19.9 % (35.3-44.9); Hemoglobin 6.8 g/dL (11.5-15.4); Immature Granulocytes % 3.7 % (0-4); Lymphocytes # 1.4 K/mcL (0.6-4.6); Lymphocytes % 5.7 %; Mean Corpuscular HGB Conc 34.2 g/dL (31.6-35.5); Mean Corpuscular Hemoglobin 31.1 pg (28.0-33.3); Mean Corpuscular Volume 90.9 fL (83.0-100.0); Mean Platelet Volume 9.9 fL (9.4-12.4); Monocytes # 0.8 K/mcL (0.0-1.3); Monocytes % 3.5 %; Neutrophils # 20.8 K/mcL (1.6-8.9); Nucleated Red Blood Cells 1.1 /100 WBC (0); Platelet Count 150 K/mcL (140-400); Red Blood Count 2.19 M/mcL (3.82-4.97); Red Cell Distribution Width 17.4 % (11.5-14.5); Segmented Neutrophils % 86.9 %; White Blood Count 23.9 K/mcL (4.3-11.1)
[2019-10-02 00:51] LABS: Basophils # 0.1 K/mcL (0.0-0.2)
[2019-10-02] MEDS: Insulin Human Regular 100 UNIT in 0.9 % Sodium Chloride 100 ML IVC SCH ×3 (01:08→10:06)
[2019-10-02 01:11] LABS: Troponin I 0.3 ng/mL (< 0.04)
[2019-10-02] MEDS: 0.45 % Sodium Chloride w/KCl 20 MEQ/1,000 ML MLS IVC SCH ×2 (01:20→08:39)
[2019-10-02 01:21] LABS: Albumin 2.4 g/dL (3.5-5.7); Albumin/Globulin Ratio 0.7 (1.1-2.2); Anisocytosis 1+ (Not Present); Bilirubin,Total 0.7 mg/dL (0.3-1.0); Calcium 6.7 mg/dL (8.6-10.3); Globulin 3.6 g/dL (2.4-3.5); Magnesium 1.6 mg/dL (1.6-2.6); Phosphorous 3.9 mg/dL (2.7-4.5); Potassium 3.7 mEq/L (3.5-5.1)
[2019-10-02 01:24] LABS: Hypochromasia Present (Not Present); Platelet Estimate Normal (Normal); Polychromasia 1+ (Not Present)
[2019-10-02] MEDS: Albuterol 2.5 MG/3 ML NEBULIZER IH SCH ×8 (01:29→23:19)
[2019-10-02 02:22] LABS: Prothrombin Time 47.3 Seconds (9.4-12.1)
[2019-10-02 02:23] LABS: INR 4.2
[2019-10-02] MEDS ORDERED: 0.9 % Sodium Chloride 250 ML IVC SCH (03:00)
[2019-10-02] MEDS ORDERED: WATER IVC ONE (03:15)
[2019-10-02] MEDS ORDERED: ACETYLCYSTEINE IVC ONE (03:15)
[2019-10-02] MEDS ORDERED: D5 IVC ONE (03:15)
[2019-10-02] MEDS ORDERED: 0.9 % Sodium Chloride 250 ML ONE ×2 (03:26→08:44)
[2019-10-02] MEDS ORDERED: Acetylcysteine 3,800 MG in D5% in Water 500 ML IVC ONE (05:00)
[2019-10-02 05:02] LABS: ABG Base Excess 0 mEq/L (-2 to 3); ABG HCO3 24 mEq/L (21-27); ABG Oxygen Saturation 99 % (95-98); ABG PCO2 37 mmHg (35-45); ABG PH 7.43 pH Units (7.32-7.45); ABG PO2 138 mmHg (85-104); ABG TCO2 26 mEq/L (20-26); Blood Gas Modality PRVC; Blood Gas VT 400 cc
[2019-10-02] MEDS: Norepinephrine 8 MG in 0.9 % Sodium Chloride 250 ML IVC SCH (06:18)
[2019-10-02] MEDS: Artificial Tears SOLN 15 ML BOTTLE BOTH EYES SCH ×6 (06:19→23:30)
[2019-10-02 06:32] LABS: Basophils % 0.1 %; Hematocrit 20.8 % (35.3-44.9); Hemoglobin 7.1 g/dL (11.5-15.4); Immature Granulocytes % 4.5 % (0-4); Lymphocytes # 1.9 K/mcL (0.6-4.6); Lymphocytes % 8.1 %; Mean Corpuscular HGB Conc 34.1 g/dL (31.6-35.5); Mean Corpuscular Hemoglobin 30.7 pg (28.0-33.3); Mean Platelet Volume 9.5 fL (9.4-12.4); Monocytes # 0.3 K/mcL (0.0-1.3); Monocytes % 1.4 %; Neutrophils # 20.3 K/mcL (1.6-8.9); Nucleated Red Blood Cells 1.7 /100 WBC (0); Platelet Count 155 K/mcL (140-400); Red Blood Count 2.31 M/mcL (3.82-4.97); Red Cell Distribution Width 17.3 % (11.5-14.5); Segmented Neutrophils % 85.9 %; White Blood Count 23.6 K/mcL (4.3-11.1)
[2019-10-02] MEDS: Hydrocortisone Sodium Succ 100 MG/2 ML VIAL IVP SCH ×5 (06:37→23:15)
[2019-10-02 06:56] LABS: Calcium 7.7 mg/dL (8.6-10.3); Potassium 3.5 mEq/L (3.5-5.1); Troponin I 0.27 ng/mL (< 0.04)
[2019-10-02 07:00] LABS: Anisocytosis 1+ (Not Present)
[2019-10-02 07:01] LABS: Hypochromasia Present (Not Present); Platelet Estimate Normal (Normal)
[2019-10-02] MEDS ORDERED: *HR* Etomidate 20 MG/10 ML AMPUL IVP ONE (08:10)
[2019-10-02] MEDS ORDERED: *HR* Midazolam HCl 5 MG/5 ML VIAL IVP ONE (08:10)
[2019-10-02] MEDS: Piperacillin/Tazobactam 3.375 GM in 0.9 % Sodium Chloride Mini Bag 100 ML IVPB SCH ×2 (08:42→17:53)
[2019-10-02] MEDS: Vitamin B Complex/Vit C/Vit E 1 EACH TABLET PO SCH (08:46)
[2019-10-02] MEDS ORDERED: Isovue-370 500 ML BOTTLE IVP ONE (08:49)
[2019-10-02] MEDS ORDERED: ACETYLCYSTEINE IVC SCH (09:00)
[2019-10-02] MEDS ORDERED: WATER IVC SCH (09:00)
[2019-10-02] MEDS ORDERED: D5 IVC SCH (09:00)
[2019-10-02] MEDS: Vasopressin 40 UNIT in D5% in Water 100 ML IVC SCH (09:49)
[2019-10-02] MEDS: Chlorhexidine Rinse 15 ML MOUTHWASH MM SCH ×2 (09:53→19:40)
[2019-10-02] MEDS: Pantoprazole 40 MG VIAL IVP SCH ×2 (09:53→17:53)
[2019-10-02 10:20] LABS: Hematocrit 24.9 % (35.3-44.9); Hemoglobin 8.1 g/dL (11.5-15.4); Mean Corpuscular HGB Conc 32.5 g/dL (31.6-35.5); Mean Corpuscular Hemoglobin 30.7 pg (28.0-33.3); Mean Corpuscular Volume 94.3 fL (83.0-100.0); Mean Platelet Volume 9.4 fL (9.4-12.4); Nucleated Red Blood Cells 2.2 /100 WBC (0); Platelet Count 144 K/mcL (140-400); Red Blood Count 2.64 M/mcL (3.82-4.97); Red Cell Distribution Width 16.6 % (11.5-14.5)
[2019-10-02 10:42] LABS: INR 2.3
[2019-10-02 10:46] LABS: Basophils # 0.5 K/mcL (0.0-0.2); Lymphocytes # 2.9 K/mcL (0.6-4.6); Monocytes # 1.9 K/mcL (0.0-1.3); Neutrophils # 18.7 K/mcL (1.6-8.9)
[2019-10-02 10:47] LABS: Platelet Estimate Normal (Normal)
[2019-10-02 10:58] LABS: Albumin 2.6 g/dL (3.5-5.7); Albumin/Globulin Ratio 0.7 (1.1-2.2); Bilirubin,Direct 0.3 mg/dL (0.0-0.2); Bilirubin,Indirect 0.3 mg/dL (0.0-1.0); Bilirubin,Total 0.6 mg/dL (0.3-1.0); Calcium 7.7 mg/dL (8.6-10.3); Globulin 3.8 g/dL (2.4-3.5); Potassium 3.1 mEq/L (3.5-5.1); Total Protein 6.4 g/dL (6.4-8.9)
[2019-10-02] MEDS: FentaNYL (PF) 1,000 MCG in 0.9 % Sodium Chloride 80 ML IVC SCH ×2 (11:26→21:23)
[2019-10-02] MEDS ORDERED: Insulin DETEMIR 100 UNIT/ML X5UNITS SQ ONE (12:31)
[2019-10-02] MEDS: D5% in 0.45% NACL w KCl 20 MEQ/1,000 ML MLS IVC SCH (13:10)
[2019-10-02 13:12] LABS: Hematocrit 30.1 % (35.3-44.9); Lymphocytes # 1.9 K/mcL (0.6-4.6); Mean Corpuscular HGB Conc 33.9 g/dL (31.6-35.5); Mean Corpuscular Volume 88.5 fL (83.0-100.0); Mean Platelet Volume 9.4 fL (9.4-12.4); Platelet Count 150 K/mcL (140-400); Red Cell Distribution Width 16.3 % (11.5-14.5); White Blood Count 24.1 K/mcL (4.3-11.1)
[2019-10-02 13:16] LABS: Hemoglobin 10.2 g/dL (11.5-15.4)
[2019-10-02 13:17] LABS: Calcium 7.6 mg/dL (8.6-10.3)
[2019-10-02 13:32] LABS: Monocytes # 1.5 K/mcL (0.0-1.3); Neutrophils # 20.7 K/mcL (1.6-8.9); Platelet Estimate Normal (Normal)
[2019-10-02 13:33] LABS: Albumin 2.7 g/dL (3.5-5.7); Albumin/Globulin Ratio 0.7 (1.1-2.2); Bilirubin,Direct 0.2 mg/dL (0.0-0.2); Bilirubin,Indirect 0.4 mg/dL (0.0-1.0); Bilirubin,Total 0.6 mg/dL (0.3-1.0); Globulin 3.8 g/dL (2.4-3.5); Total Protein 6.5 g/dL (6.4-8.9)
[2019-10-02] MEDS: Insulin LISPRO 300 UNITS/3 ML VIAL SQ SCH ×4 (16:21→23:20)
[2019-10-03] MEDS: D5% in 0.45% NACL w KCl 20 MEQ/1,000 ML MLS IVC SCH (03:08)
[2019-10-03] MEDS: Insulin LISPRO 300 UNITS/3 ML VIAL SQ SCH ×4 (03:22→19:50)
[2019-10-03] MEDS: Albuterol 2.5 MG/3 ML NEBULIZER IH SCH ×4 (03:22→15:33)
[2019-10-03] MEDS: Artificial Tears SOLN 15 ML BOTTLE BOTH EYES SCH ×5 (03:22→21:36)
[2019-10-03 04:03] LABS: Basophils % 0.2 %; Hematocrit 22.8 % (35.3-44.9); Immature Granulocytes % 6.2 % (0-4); Lymphocytes # 1.4 K/mcL (0.6-4.6); Lymphocytes % 6.7 %; Mean Corpuscular HGB Conc 33.8 g/dL (31.6-35.5); Mean Corpuscular Volume 88.7 fL (83.0-100.0); Mean Platelet Volume 9.8 fL (9.4-12.4); Monocytes # 0.9 K/mcL (0.0-1.3); Monocytes % 4.2 %; Nucleated Red Blood Cells 2.8 /100 WBC (0); Platelet Count 137 K/mcL (140-400); Red Blood Count 2.57 M/mcL (3.82-4.97); Red Cell Distribution Width 17.2 % (11.5-14.5); Segmented Neutrophils % 82.7 %; White Blood Count 21.1 K/mcL (4.3-11.1)
[2019-10-03 04:04] LABS: Hemoglobin 7.7 g/dL (11.5-15.4); Neutrophils # 17.5 K/mcL (1.6-8.9)
[2019-10-03 04:05] LABS: INR 1.5; Prothrombin Time 17.2 Seconds (9.4-12.1)
[2019-10-03 04:28] LABS: ABG Base Excess -2 mEq/L (-2 to 3); ABG HCO3 23 mEq/L (21-27); ABG Oxygen Saturation 98 % (95-98); ABG PCO2 41 mmHg (35-45); ABG PH 7.36 pH Units (7.32-7.45); ABG PO2 100 mmHg (85-104); ABG TCO2 24 mEq/L (20-26); Blood Gas Modality VC; Blood Gas VT 400 cc
[2019-10-03 04:43] LABS: Calcium 7.5 mg/dL (8.6-10.3)
[2019-10-03] MEDS: FentaNYL (PF) 1,000 MCG in 0.9 % Sodium Chloride 80 ML IVC SCH ×3 (05:23→19:38)
[2019-10-03] MEDS: Hydrocortisone Sodium Succ 100 MG/2 ML VIAL IVP SCH ×2 (05:34→13:19)
[2019-10-03] MEDS: Piperacillin/Tazobactam 3.375 GM in 0.9 % Sodium Chloride Mini Bag 100 ML IVPB SCH (05:35)
[2019-10-03] MEDS: Pantoprazole 40 MG VIAL IVP SCH (05:35)
[2019-10-03 05:48] LABS: Anisocytosis 1+ (Not Present)
[2019-10-03 05:49] LABS: Platelet Estimate Normal (Normal)
[2019-10-03] MEDS ORDERED: 0.9 % Sodium Chloride 250 ML IVC PRN (06:28)
[2019-10-03] MEDS ORDERED: 0.9 % Sodium Chloride 1,000 ML PRIME SCH (06:30)
[2019-10-03] MEDS ORDERED: Budesonide/Formoterol 160/4.5 1 PUFF INH IH ONE (07:28)
[2019-10-03] MEDS ORDERED: Aminoglycoside Consult 1 EACH MC ONE (07:40)
[2019-10-03] MEDS: Vasopressin 40 UNIT in D5% in Water 100 ML IVC SCH (08:03)
[2019-10-03] MEDS: Vitamin B Complex/Vit C/Vit E 1 EACH TABLET PO SCH (08:04)
[2019-10-03] MEDS: MetroNIDAZOLE 500 MG/100 ML 500 MG/100 ML BAG IVPB SCH ×2 (08:10→19:50)
[2019-10-03] MEDS: Chlorhexidine Rinse 15 ML MOUTHWASH MM SCH ×2 (08:10→22:13)
[2019-10-03] MEDS: Vancomycin Oral Soln 125 MG/2.5 ML UDC PO SCH ×3 (09:23→19:50)
[2019-10-03 10:29] LABS: Albumin 2.6 g/dL (3.5-5.7); Albumin/Globulin Ratio 0.7 (1.1-2.2); Bilirubin,Direct 0.3 mg/dL (0.0-0.2); Bilirubin,Indirect 0.3 mg/dL (0.0-1.0); Bilirubin,Total 0.6 mg/dL (0.3-1.0); Total Protein 6.6 g/dL (6.4-8.9)
[2019-10-03 10:30] LABS: Albumin 2.6 g/dL (3.5-5.7); Albumin/Globulin Ratio 0.7 (1.1-2.2); Bilirubin,Total 0.6 mg/dL (0.3-1.0); Calcium 8.1 mg/dL (8.6-10.3); Magnesium 1.7 mg/dL (1.6-2.6); Phosphorous 2.9 mg/dL (2.7-4.5); Potassium 3.7 mEq/L (3.5-5.1); Total Protein 6.6 g/dL (6.4-8.9)
[2019-10-03 11:05] LABS: Hepatitis B Surface Antigen Nonreactive (Nonreactive)
[2019-10-03 11:34] LABS: Hepatitis B Core IgM Nonreactive (Nonreactive)
[2019-10-03 11:35] LABS: Hepatitis A Antibody IgM Nonreactive (Nonreactive); Hepatitis C Virus Antibody Nonreactive (Nonreactive)
[2019-10-03 12:05] LABS: Hematocrit 27.5 % (35.3-44.9)
[2019-10-03 12:06] LABS: Hemoglobin 9.6 g/dL (11.5-15.4)
[2019-10-03 12:24] LABS: Calcium 7.7 mg/dL (8.6-10.3); Potassium 3.9 mEq/L (3.5-5.1)
[2019-10-03] MEDS ORDERED: *HR* LORazepam 2 MG/ML VIAL IVP PRN (17:14)
[2019-10-03] MEDS ORDERED: Haloperidol Lactate 5 MG/ML VIAL IVP PRN (17:16)
[2019-10-03] MEDS: Atropine Sulfate 1% 40 DROP/2 ML BOTTLE SL PRN (17:58)
[2019-10-04] MEDS: Artificial Tears SOLN 15 ML BOTTLE BOTH EYES SCH ×3 (01:54→09:35)
[2019-10-04] MEDS: Atropine Sulfate 1% 40 DROP/2 ML BOTTLE SL PRN ×2 (09:35→12:35)
[2019-10-04] MEDS: Chlorhexidine Rinse 15 ML MOUTHWASH MM SCH (09:35)
[2019-10-04] MEDS ORDERED: Haloperidol Lactate 5 MG/ML VIAL IVP PRN (11:04)
[2019-10-04] MEDS ORDERED: Artificial Tears SOLN 15 ML BOTTLE BOTH EYES PRN (11:04)
[2019-10-04] MEDS ORDERED: *HR* FentaNYL (PF) 100 MCG/2 ML VIAL IVP PRN (11:04)
[2019-10-04] MEDS: FentaNYL (PF) 1,000 MCG in 0.9 % Sodium Chloride 80 ML IVC SCH (17:52)
[2019-10-04] MEDS: Furosemide 20 MG TABLET PO SCH (21:39)
[2019-10-04] MEDS: carvediloL 25 MG TABLET PO SCH (21:39)
[2019-10-05] MEDS: Atropine Sulfate 1% 40 DROP/2 ML BOTTLE SL PRN ×4 (04:33→22:41)
[2019-10-05] MEDS: *HR* LORazepam 2 MG/ML VIAL IVP PRN ×5 (11:39→22:41)
[2019-10-05] MEDS: FentaNYL (PF) 1,000 MCG in 0.9 % Sodium Chloride 80 ML IVC SCH (12:17)
[2019-10-05] MEDS ORDERED: Scopolamine Patch 1.5 MG PATCH.TD72 TD ONE (15:41)
[2019-10-06] MEDS: *HR* LORazepam 2 MG/ML VIAL IVP PRN ×3 (00:36→04:42)
[2019-10-06 03:31] VITALS: BP 138/72
[2019-10-06] MEDS: Atropine Sulfate 1% 40 DROP/2 ML BOTTLE SL PRN (07:41)
[2019-10-06] MEDS: FentaNYL (PF) 1,000 MCG in 0.9 % Sodium Chloride 80 ML IVC SCH (09:36)
== END 2019-10-06 11:35 | disposition hospice, home (50) | DRG 853 ==
LOC: 2ANU 16:49 → EMEROOARM 16:49 → SUATTDRO 20:31 → 2ANU 21:52 → SUATTDRO 09-22 18:21 → ICNU 10-01 09:13 → 2ANU 10-04 14:20
PROVIDERS: ADMIT Family Medicine; ATTEND Pharmacist

== ENCOUNTER 2019-10-06 09:48 | Inpatient (IN) ==
[2019-10-06] MEDS ORDERED: Albuterol 2.5 MG/3 ML NEBULIZER IH PRN (09:55)
[2019-10-06] MEDS ORDERED: Haloperidol Lactate 5 MG/ML VIAL IVP PRN (09:55)
[2019-10-06] MEDS ORDERED: *HR* LORazepam Oral Conc 2 MG/ML SL SCH (10:15)
[2019-10-06] MEDS: *HR* LORazepam Oral Conc 2 MG/ML SL SCH ×4 (13:06→23:57)
[2019-10-06] MEDS: FentaNYL (PF) 1,000 MCG in 0.9 % Sodium Chloride 80 ML IVC SCH (13:08)
[2019-10-06] MEDS: Atropine Sulfate 1% 40 DROP/2 ML BOTTLE SL PRN (16:11)
[2019-10-07] MEDS: *HR* LORazepam Oral Conc 2 MG/ML SL SCH ×5 (04:30→20:26)
[2019-10-07] MEDS: FentaNYL (PF) 1,000 MCG in 0.9 % Sodium Chloride 80 ML IVC SCH (06:40)
[2019-10-07] MEDS ORDERED: Haloperidol Lactate 5 MG/ML VIAL IVP PRN (08:56)
[2019-10-08] MEDS: *HR* LORazepam Oral Conc 2 MG/ML SL SCH ×6 (00:24→20:39)
[2019-10-08] MEDS: FentaNYL (PF) 1,000 MCG in 0.9 % Sodium Chloride 80 ML IVC SCH ×2 (02:14→18:20)
[2019-10-08] MEDS: Haloperidol Lactate 5 MG/ML VIAL IVP SCH ×2 (10:47→18:19)
[2019-10-08] MEDS: Scopolamine Patch 1.5 MG PATCH.TD72 TD SCH (10:48)
[2019-10-08] MEDS: *HR* FentaNYL (PF) 100 MCG/2 ML VIAL IVP PRN (12:09)
[2019-10-08] MEDS ORDERED: Ondansetron 4 MG/2 ML VIAL IVP PRN (13:03)
[2019-10-09] MEDS: Haloperidol Lactate 5 MG/ML VIAL IVP SCH ×4 (00:28→17:41)
[2019-10-09] MEDS: *HR* LORazepam Oral Conc 2 MG/ML SL SCH ×6 (00:30→20:06)
[2019-10-09] MEDS: *HR* FentaNYL (PF) 100 MCG/2 ML VIAL IVP PRN (09:02)
[2019-10-09] MEDS: FentaNYL (PF) 1,000 MCG in 0.9 % Sodium Chloride 80 ML IVC SCH (09:16)
[2019-10-10] MEDS: *HR* LORazepam Oral Conc 2 MG/ML SL SCH ×6 (00:02→20:21)
[2019-10-10] MEDS: Haloperidol Lactate 5 MG/ML VIAL IVP SCH ×4 (00:02→17:18)
[2019-10-10] MEDS: FentaNYL (PF) 1,000 MCG in 0.9 % Sodium Chloride 80 ML IVC SCH ×2 (00:54→16:10)
[2019-10-10] MEDS ORDERED: Acetaminophen 325 MG RECTAL SUPP RC ONE (11:12)
[2019-10-10] MEDS: Atropine Sulfate 1% 40 DROP/2 ML BOTTLE SL PRN ×2 (12:07→17:23)
[2019-10-11] MEDS: *HR* LORazepam Oral Conc 2 MG/ML SL SCH ×6 (00:23→19:07)
[2019-10-11] MEDS: Haloperidol Lactate 5 MG/ML VIAL IVP SCH ×5 (00:23→19:07)
[2019-10-11] MEDS: Scopolamine Patch 1.5 MG PATCH.TD72 TD SCH (08:00)
[2019-10-11] MEDS: FentaNYL (PF) 1,000 MCG in 0.9 % Sodium Chloride 80 ML IVC SCH (08:02)
[2019-10-11] MEDS: Atropine Sulfate 1% 40 DROP/2 ML BOTTLE SL PRN (23:05)
[2019-10-11] MEDS: *HR* LORazepam 2 MG/ML VIAL IVP PRN (23:07)
[2019-10-12] MEDS: FentaNYL (PF) 1,000 MCG in 0.9 % Sodium Chloride 80 ML IVC SCH ×4 (00:32→23:37)
[2019-10-12] MEDS: *HR* LORazepam Oral Conc 2 MG/ML SL SCH ×7 (00:40→23:37)
[2019-10-12] MEDS: *HR* FentaNYL (PF) 100 MCG/2 ML VIAL IVP PRN ×2 (00:53→01:59)
[2019-10-12] MEDS: Atropine Sulfate 1% 40 DROP/2 ML BOTTLE SL PRN ×3 (01:59→23:37)
[2019-10-12] MEDS: Haloperidol Lactate 5 MG/ML VIAL IVP SCH ×4 (05:40→23:36)
[2019-10-12] MEDS ORDERED: Haloperidol Lactate 5 MG/ML VIAL IVP PRN (10:45)
[2019-10-12] MEDS: *HR* LORazepam 2 MG/ML VIAL IVP PRN (13:12)
[2019-10-13] MEDS: *HR* LORazepam Oral Conc 2 MG/ML SL SCH ×6 (04:02→23:56)
[2019-10-13] MEDS: Atropine Sulfate 1% 40 DROP/2 ML BOTTLE SL PRN ×8 (04:02→23:57)
[2019-10-13] MEDS: Haloperidol Lactate 5 MG/ML VIAL IVP SCH ×3 (05:42→18:06)
[2019-10-13] MEDS: FentaNYL (PF) 1,000 MCG in 0.9 % Sodium Chloride 80 ML IVC SCH ×3 (05:43→18:00)
[2019-10-13] MEDS ORDERED: FentaNYL (PF) 1,000 MCG in 0.9 % Sodium Chloride 80 ML IVC SCH (14:08)
[2019-10-13] MEDS: *HR* FentaNYL (PF) 100 MCG/2 ML VIAL IVP PRN ×3 (15:43→21:02)
[2019-10-13] MEDS: *HR* LORazepam 2 MG/ML VIAL IVP PRN ×3 (18:13→23:01)
[2019-10-13] MEDS: Haloperidol Lactate 5 MG/ML VIAL IVP PRN (23:01)
[2019-10-14] MEDS: FentaNYL (PF) 1,000 MCG in 0.9 % Sodium Chloride 80 ML IVC SCH ×6 (00:30→23:52)
[2019-10-14] MEDS: Haloperidol Lactate 5 MG/ML VIAL IVP SCH ×4 (00:41→18:15)
[2019-10-14] MEDS: *HR* FentaNYL (PF) 100 MCG/2 ML VIAL IVP PRN ×3 (00:41→10:52)
[2019-10-14] MEDS: *HR* LORazepam 2 MG/ML VIAL IVP PRN (01:41)
[2019-10-14] MEDS: *HR* LORazepam Oral Conc 2 MG/ML SL SCH ×2 (04:10→08:42)
[2019-10-14] MEDS: Atropine Sulfate 1% 40 DROP/2 ML BOTTLE SL PRN ×4 (04:10→13:50)
[2019-10-14] MEDS: Scopolamine Patch 1.5 MG PATCH.TD72 TD SCH (08:40)
[2019-10-14] MEDS: *HR* LORazepam 2 MG/ML VIAL IVP SCH ×7 (10:52→22:11)
[2019-10-14] MEDS: Haloperidol Lactate 5 MG/ML VIAL IVP PRN (13:51)
[2019-10-14] MEDS ORDERED: Glycopyrrolate 0.2 MG/ML VIAL IVP PRN (13:58)
[2019-10-14 18:46] VITALS: BP 97/59
[2019-10-15] MEDS: Haloperidol Lactate 5 MG/ML VIAL IVP SCH ×2 (00:05→06:02)
[2019-10-15] MEDS: *HR* LORazepam 2 MG/ML VIAL IVP SCH ×4 (00:06→06:03)
[2019-10-15] MEDS: FentaNYL (PF) 1,000 MCG in 0.9 % Sodium Chloride 80 ML IVC SCH (04:55)
== END 2019-10-15 06:50 | disposition expired | DRG 64 ==
LOC: 2ANU 11:36
PROVIDERS: ADMIT Internal Medicine Hospice and Palliative Medicine; ATTEND Internal Medicine Hospice and Palliative Medicine